=== PATIENT | female | born 1935 | race Caucasian/White ===

== ENCOUNTER 2019-10-31 06:43 | Observation (INO) | payer MEDICARE ==
[~2019-10-31] VITALS: Ht 149.9 cm; Wt 53.1 kg
[~2019-10-31 06:43] MED LIST: AMITIZA24 MCG PO; Aspirin PO; CARDIZEM CD120 MG PO; FUROSEMIDE40 MG PO; LEVOTHYROXINE50 MCG PO; NAPROXEN500 MG; POTASSIUM CHLO10 ME1 PO; XANAX1 MG PO; ZOFRAN ODT4 MG PO
[2019-10-31] MEDS ORDERED: PANTOPRAZOLE 40 MG 10ML VIAL IV STA (06:45)
[2019-10-31] MEDS ORDERED: ASPIRIN 81 MG CHEW TAB PO ONE (06:45)
--- NOTE | 2019-10-31 07:01 | NUR ---
Report to HUSEYIN Collier
[2019-10-31 07:04] LABS: BASOPHILS # (AUTO) 0.1 (0.0-0.1); BASOPHILS % 0.8 % (0.0-1.0); EOSINOPHILS # (AUTO) 0.1 (0.0-0.4); EOSINOPHILS % 1.5 % (0.0-6.0); HEMATOCRIT 34.7 % (34.2-44.1); HEMOGLOBIN 10.7 g/dL (12.0-16.0); LYMPHOCYTES # (AUTO) 1.9 (1.0-3.2); LYMPHOCYTES % 21.8 % (18.0-39.1); MEAN CORPUSCULAR HEMOGLOBIN 28.5 pg (28-32); MEAN CORPUSCULAR HGB CONC 30.8 g/dL (31-35); MEAN CORPUSCULAR VOLUME 92.5 fL (81-99); MONOCYTES # (AUTO) 0.9 (0.2-0.8); MONOCYTES % 10.3 % (4.4-11.3); NEUTROPHILS # (AUTO) 5.6 (2.1-6.9); PLATELET COUNT 368 x10e3/uL (140-360); RED BLOOD COUNT 3.75 x10e6/uL (3.6-5.1); RED CELL DISTRIBUTION WIDTH 13.6 % (11.7-14.4)
[2019-10-31 07:16] LABS: INR 0.87; PROTHROMBIN TIME 12.2 seconds (11.9-14.5)
[2019-10-31 07:17] LABS: PARTIAL THROMBOPLASTIN TIME 29.1 seconds (23.8-35.5)
[2019-10-31 07:24] LABS: ALBUMIN 3.2 g/dL (3.5-5.0); ALBUMIN/GLOBULIN RATIO 1.1 (0.8-2.0); ANION GAP 13.4 mmol/L (8-16); CALCIUM 8.8 mg/dL (8.4-10.2); POTASSIUM 4.4 mmol/L (3.5-5.1)
--- NOTE | 2019-10-31 07:25 | Diagnostic Imaging Report ---
EXAMINATION: CHEST SINGLE (PORTABLE) INDICATION: ^CP ^[id number] ^0700 COMPARISON: None available FINDINGS: AP view TUBES and LINES: None. LUNGS: Lungs are well inflated. Mild central vascular congestion. No definite focal consolidation. PLEURA: No pleural effusion or pneumothorax. HEART AND MEDIASTINUM: The cardiomediastinal silhouette is unremarkable. BONES AND SOFT TISSUES: No acute osseous lesion. Soft tissues are unremarkable. UPPER ABDOMEN: No free air under the diaphragm. IMPRESSION: Mild central vascular congestion. No definite focal consolidation. Signed by: Dr. Saeed Holley MD on 10/31/2019 7:21 AM
[2019-10-31 07:30] LABS: CREATINE KINASE MB 2.2 ng/mL (0-5.0)
[2019-10-31] MEDS ORDERED: ONDANSETRON HCL INJ 2MG/ML 2ML 2 MG/ML VIAL IV PRN (07:30)
[2019-10-31] MEDS ORDERED: NITROGLYCERIN 0.4 MG SUBL SL PRN (07:30)
[2019-10-31] MEDS ORDERED: ASPIRIN 325 MG TAB EC PO ONE (07:30)
--- NOTE | 2019-10-31 07:44 | Emergency Department Note ---
History of Present Illnes History of Present Illness Chief Complaint: Chest Pain History of Present Illness This is a 84 year old female 84 Y/O FEMALE PT PRESENTS TO THE ER C/O GENERALIZED CP THAT WOKE HER UP AT 0400 WITH PALPITATIONS/HEART RACING, CP RADIATING TO CENTER OF BACK AND NAUSEA. NO ASSOCIATED SOB Historian: Patient Arrival Mode: Car Personal Computer Network Analyst Required: No Onset (how long ago): hour(s) Location: CHEST Quality: PRESSURE Radiation: Reports back Severity: severe (12/28 AT ONSET 0400) Timing of current episode: intermittent Progression: waxing and waning (CURRENTLY NOW 03/30) Chronicity: recurrent Context: Denies recent illness Relieving factors: none Exacerbating factors: none Associated symptoms: Reports chest pain, Reports other (PALPITATIONS); Denies shortness of breath Treatments prior to arrival: none Past Medical/Family History Physician Review I have reviewed the patient's past medical and family history. Any updates have been documented here. Past Medical History Recent Fever: No Clinical Suspicion of Infectio: No New/Unexplained Change in Ment: No Past Medical History: Hypertension, A-Fib, Hypothyroidism, Anxiety, GERD Other Medical History: INSOMNIA Other Surgery: Gastrectomy Back surgery x 4 x 2 Social History Smoking Cessation: Never Smoker Counseling Performed: No Alcohol Use: None Any Illegal Drug Use: No TB Exposure/Symptoms: No Physically hurt or threatened: No Family History Family history of heart diseas: Yes Other Last Tetanus: Unknown Any Pre-Existing Lines (PICC,: No Review of Systems Review of Systems Constitutional: Reports no symptoms EENTM: Reports no symptoms Cardiovascular: Reports as per HPI Respiratory: Reports no symptoms Gastrointestinal: Reports no symptoms Genitourinary: Reports no symptoms Musculoskeletal: Reports no symptoms Integumentary: Reports no symptoms Neurological: Reports no symptoms Psychological: Reports no symptoms Endocrine: Reports no symptoms Hematological/Lymphatic: Reports no symptoms Physical Exam Related Data Allergies: Coded Allergies: codeine (Unverified Adverse Reaction, Mild, throw up, 08/23/16) Triage Vital Signs Vital Signs Date Time Temp Pulse Resp B/P (MAP) Pulse Ox O2 Delivery O2 Flow Rate FiO2 10/31/19 06:43 98.9 84 17 133/78 100 Room Air Vital signs reviewed: Yes Physical Exam CONSTITUTIONAL Constitutional: Present well-developed, Present well-nourished HENT HENT: Present normocephalic, Present atraumatic, Present oropharynx clear/moist, Present nose normal HENT L/R: Present left ext ear normal, Present right ext ear normal EYES Eyes: Reports PERRL, Reports conjunctivae normal NECK Neck: Present ROM normal PULMONARY Pulmonary: Present effort normal, Present breath sounds normal CARDIOVASCULAR Cardiovascular: Present regular rhythm, Present heart sounds normal, Present capillary refill normal, Present normal rate GASTROINTESTINAL Abdominal: Present soft, Present nontender, Present bowel sounds normal GENITOURINARY Genitourinary: Present exam deferred SKIN Skin: Present warm, Present dry MUSCULOSKELETAL Musculoskeletal: Present ROM normal NEUROLOGICAL Neurological: Present alert, Present oriented x 3, Present no gross motor or sensory deficits PSYCHOLOGICAL Psychological: Present mood/affect normal, Present judgement normal Results Laboratory Result Diagram: 10/31/19 0600 10/31/19 0600 Laboratory Laboratory Tests Test 10/31/19 06:00 White Blood Count 8.63 x10e3/uL (4.8-10.8) Red Blood Count 3.75 x10e6/uL (3.6-5.1) Hemoglobin 10.7 g/dL (12.0-16.0) Hematocrit 34.7 % (34.2-44.1) Mean Corpuscular Volume 92.5 fL (81-99) Mean Corpuscular Hemoglobin 28.5 pg (28-32) Mean Corpuscular Hemoglobin Concent 30.8 g/dL (31-35) Red Cell Distribution Width 13.6 % (11.7-14.4) Platelet Count 368 x10e3/uL (140-360) Neutrophils (%) (Auto) 65.0 % (38.7-80.0) Lymphocytes (%) (Auto) 21.8 % (18.0-39.1) Monocytes (%) (Auto) 10.3 % (4.4-11.3) Eosinophils (%) (Auto) 1.5 % (0.0-6.0) Basophils (%) (Auto) 0.8 % (0.0-1.0) Neutrophils # (Auto) 5.6 (2.1-6.9) Lymphocytes # (Auto) 1.9 (1.0-3.2) Monocytes # (Auto) 0.9 (0.2-0.8) Eosinophils # (Auto) 0.1 (0.0-0.4) Basophils # (Auto) 0.1 (0.0-0.1) Absolute Immature Granulocyte (auto 0.05 x10e3/uL (0-0.1) Prothrombin Time 12.2 seconds (11.9-14.5) Prothromb Time International Ratio 0.87 Activated Partial Thromboplast Time 29.1 seconds (23.8-35.5) Sodium Level 138 mmol/L (136-145) Potassium Level 4.4 mmol/L (3.5-5.1) Chloride Level 107 mmol/L (98-107) Carbon Dioxide Level 22 mmol/L (22-29) Anion Gap 13.4 mmol/L (8-16) Blood Urea Nitrogen 22 mg/dL (7-26) Creatinine 1.00 mg/dL (0.57-1.11) Estimat Glomerular Filtration Rate 53 ML/MIN (60-) BUN/Creatinine Ratio 22 (6-25) Glucose Level 109 mg/dL (74-118) Calcium Level 8.8 mg/dL (8.4-10.2) Total Bilirubin 0.2 mg/dL (0.2-1.2) Aspartate Amino Transf (AST/SGOT) 19 IU/L (5-34) Alanine Aminotransferase (ALT/SGPT) 11 IU/L (0-55) Alkaline Phosphatase 113 IU/L (40-150) Creatine Kinase 53 IU/L (29-168) Creatine Kinase MB 2.20 ng/mL (0-5.0) Troponin I 0.006 ng/mL (0-0.300) Total Protein 6.2 g/dL (6.5-8.1) Albumin 3.2 g/dL (3.5-5.0) Globulin 3.0 g/dL (2.3-3.5) Albumin/Globulin Ratio 1.1 (0.8-2.0) Lab results reviewed: Yes Imaging Imaging results reviewed: Yes Impressions EXAMINATION: CHEST SINGLE (PORTABLE) INDICATION: ^CP ^[id number] ^0700 COMPARISON: None available FINDINGS: AP view TUBES and LINES: None. LUNGS: Lungs are well inflated. Mild central vascular congestion. No definite focal consolidation. PLEURA: No pleural effusion or pneumothorax. HEART AND MEDIASTINUM: The cardiomediastinal silhouette is unremarkable. BONES AND SOFT TISSUES: No acute osseous lesion. Soft tissues are unremarkable. UPPER ABDOMEN: No free air under the diaphragm. IMPRESSION: Mild central vascular congestion. No definite focal consolidation. Signed by: Dr. Saeed Holley MD on 10/31/2019 7:21 AM Procedures 12 Lead ECG Interpretation ECG Interpretation : ECG: ECG 1 Personal Computer Network Analyst: Interpreted by ED physician Date: Oct 31, 2019 Time: 06:44 Rhythm: sinus rhythm Rate: normal (92) QRS axis: normal ST segments normal: Yes T waves normal: Yes Clinical Impression: normal ECG Assessment & Plan Medical Decision Making MDM 84 Y/O WITH H/O PAROXYSMAL AFIB ON DILTIAZEM, CP WITH PALP'S WOKE HER AT 0400 - CHECK CBC, CHEM'S, ECG, CARDIACS, CXR - R/O STEMI/NSTEMI, AFIB, ELECTROLYTE ABNL, ANEMIA. ADMIT R/O ACS Reassessment Reassessment SPOKE WITH DR Reba BURNS FOR ADMISSION (PCP VICKY LEE) Assessment & Plan Final Impression: (1) Chest pain Depart Disposition: ADMITTED Last Vital Signs Date Time Temp Pulse Resp B/P (MAP) Pulse Ox O2 Delivery O2 Flow Rate FiO2 10/31/19 07:02 91 18 116/73 100 Room Air 10/31/19 06:43 98.9 Home Meds Active Scripts Potassium Chloride (POTASSIUM CHLORIDE) 10 Meq Tab.er.prt, 20 MEQ PO DAILY for 10 Days, TAB Prov:ARABELLA HIRSCH NP 11/23/15 [Aspirin] 81 MG TABEC No Conflict Check, 81 MG PO DAILY for 30 Days Prov:ARABELLA HIRSCH NP 11/23/15 Diltiazem Hcl* (CARDIZEM CD*) 120 Mg Cap.er.24h, 120 MG PO DAILY for 30 Days Prov:ARABELLA HIRSCH NP 11/23/15 Reported Medications Ondansetron (ZOFRAN ODT) 4 Mg Tab.rapdis, 4 MG PO BID PRN for NAUSEA, TAB 08/23/16 Levothyroxine Sodium (LEVOTHYROXINE SODIUM) 50 Mcg Tablet, 50 MCG PO DAILY, #30 TAB 08/23/16 Lubiprostone (AMITIZA) 24 Mcg Capsule, 24 MCG PO DAILY, CAP 11/22/15 Alprazolam* (XANAX*) 1 Mg Tablet, 0.5 MG PO HS PRN for SLEEP 1/23/16 Medications in the ED Pantoprazole Sodium 40 mg ONCE STAT IV ; Start 10/31/19 at 06:45; Stop 10/31/19 at 06:47; Status DC Aspirin 81 mg PRN ONCE PO ; Start 10/31/19 at 06:45; Stop 10/31/19 at 06:47; Status DC Aspirin 325 mg NOW ONCE PO ; Start 10/31/19 at 07:30; Stop 10/31/19 at 07:31; Status UNV Aspirin 81 mg QAM PO ; Start 10/31/19 at 09:00; Stop 11/30/19 at 08:59; Status UNV Nitroglycerin 0.4 mg Q5M PRN SL CHEST PAIN; Start 10/31/19 at 07:30; Status UNV Famotidine 20 mg Q12H IV ; Start 10/31/19 at 09:00; Stop 11/30/19 at 08:59; Status UNV Ondansetron HCl 4 mg Q4H PRN IV NAUSEA AND VOMITING; Start 10/31/19 at 07:30; Stop 11/30/19 at 07:29; Status UNV JOSH HARDEN MD Oct 31, 2019 07:44
--- OUTSIDE RECORDS SUMMARY | 2019-10-31 07:44 | XMS REPORT | Continuity of Care Document ---
Author Author [facility] Organization [facility] Address [address] [place] [address] Dr. Martinez. [address] [place] [phone] Phone Unavailable Care Team Providers Care Managing Director Atlas Name Role Phone Ty HARDEN Attphys Unavailable Problems This patient has no known problems. Allergies, Adverse Reactions, Alerts This patient has no known allergies or adverse reactions. Medications This patient has no known medications. Procedures This patient has no known procedures. Results Test Description Test Time Test Comments Results Result Comments Source CHEST SINGLE (PORTABLE) 2019-10-31 07:20:00 [place] [address] Patient Name: MATT FLORES MR #: [id number] : 1935 Age/Sex: 84/F Req #: [id number] Adm Physician: Ordered by: JOSH HARDEN MD Report #: [id number] Location: ER Room/Bed: Procedure: [id number] DX/CHEST SINGLE (PORTABLE) Exam Date: 10/31/19 Exam Time: 699 REPORT STATUS: Signed EXAMINATION: CHEST SINGLE (PORTABLE) INDICATION: CP [id number] COMPARISON: None available FINDINGS: AP view TUBES and LINES: None. LUNGS: Lungs are well inflated. Mild central vascular congestion. No definite focal consolidation. PLEURA: No pleural effusion or pneumothorax. HEART AND MEDIASTINUM: The cardiomediastinal silhouette is unremarkable. BONES AND SOFT TISSUES: No acute osseous lesion. Soft tissues are unremarkable. UPPER ABDOMEN: No free air under the diaphragm. IMPRESSION: Mild central vascular congestion. No definite focal consolidation. Signed by: Dr. Saeed Flor MD on 10/31/2019 7:21 AM Dictated By: SAEED FLOR MD 0 Transcribed By: FADI on 10/31/19720 COPY TO: JOSH HARDEN MD
[2019-10-31] MEDS: ASPIRIN 81 MG ENTERIC COATED PO SCH (08:24)
--- NOTE | 2019-10-31 08:42 | NUR ---
DR. BURNS AT BEDSIDE EVALUATING PATIENT
[2019-10-31] MEDS ORDERED: ONDANSETRON HCL 4 MG ORAL DISINTEGRATING TAB PO PRN (08:45)
[2019-10-31] MEDS: FAMOTIDINE 20 MG/2 ML VIAL IV SCH ×2 (08:46→20:50)
[2019-10-31] MEDS: DILTIAZEM HCL ER 120 MG CAP PO SCH (09:14)
[2019-10-31] MEDS: POTASSIUM CHLORIDE 10MEQ EA PO SCH (09:15)
[2019-10-31] MEDS: LEVOTHYROXINE SODIUM 50 MCG TAB PO SCH (09:15)
[2019-10-31] MEDS ORDERED: SODIUM CHLORIDE 0.9% 1000ML 1,000 ML IV STA (09:25)
[2019-10-31 09:28] LABS: CLARITY,URINE CLEAR (CLEAR); COLOR,URINE YELLOW (YELLOW); LEUKOCYTE ESTERASE ,URINE SMALL (NEGATIVE); NITRITE,URINE POSITIVE (NEGATIVE); PROTEIN,URINE DIPSTICK NEGATIVE (NEGATIVE)
[2019-10-31 09:29] LABS: BILIRUBIN,URINE NEGATIVE (NEGATIVE); KETONES,URINE NEGATIVE (NEGATIVE); URINE UROBILINOGEN 0.2 mg/dL (0.2 - 1)
[2019-10-31] MEDS: LUBIPROSTONE 24 MCG CAP PO SCH (09:31)
--- NOTE | 2019-10-31 09:37 | NUR ---
DR. GEE AT BEDSIDE EVALUATING PATIENT
[2019-10-31 09:54] LABS: BACTERIA,URINE MANY /HPF; EPITHELIAL CELLS,URINE FEW /LPF; RBC,URINE 0-5 /HPF (0-5); TRANSITIONAL EPI CELLS,URINE FEW; WBC,URINE (MAN) 21-50 /HPF (0-5)
--- NOTE | 2019-10-31 10:28 | Consultation ---
DATE OF CONSULTATION: 10/31/2019 Cardiology Consultation Thank you for asking me to see this nice lady in consultation. Ms. Ortega is a pleasant 84-year-old woman who presents to the emergency room with a report that she was awakened at 4 o'clock this morning with chest pain and palpitations. HISTORY OF PRESENT ILLNESS: The patient reports that she thinks the chest discomfort woke her first, in the right side of her chest radiating to her back seemed quite severe and a little while later the palpitations began. She reports these things were eventually spontaneously resolved without any special treatment. PAST MEDICAL HISTORY: Significant for previous hospitalizations at [facility] in 2016. She was hospitalized for chest discomfort with a report that she has had a brief episode of atrial fibrillation. I have not seen a documentation on the chart. Also hospitalized in 2017 for gastrointestinal problems. Past medical history significant for chronic constipation, anxiety, depression, partial gastrectomy secondary to peptic ulcer disease, also cholecystectomy, and appendectomy. CURRENT MEDICATIONS: At home include; diltiazem ER 120 mg daily, levothyroxine 50 mcg daily, potassium 20 mEq daily, and famotidine 20 mg b.i.d. She tells me she takes a medication for her bladder as well, and denies any diuretics. PERSONAL AND SOCIAL HISTORY: She does not smoke or drink. She lives at home with her friend. PHYSICAL EXAMINATION: GENERAL: At this time shows a pleasant, alert lady, thin, and awake. VITAL SIGNS: Blood pressure 132/70, heart rate 90 and regular. HEAD, EYES, EARS, NOSE, AND THROAT: Shows only poor dentition. NECK: No jugular venous distention. THORAX: Heart sounds S1 and S2 are equal. No murmurs. LUNGS: Clear. ABDOMEN: Protuberant. Healed surgical incisions. Normal bowel sounds. Nontender. EXTREMITIES: No cyanosis, clubbing, or edema. LABORATORY DATA: EKG on discharge shows sinus rhythm without ST or T-wave changes. BNP is 275, BUN 22, creatinine 1.0, glucose 109, hemoglobin 10.7, white count normal. Initial troponins normal. Additionally, echocardiogram in 2016, showed normal LV function, mild aortic insufficiency and trace mitral regurgitation. ASSESSMENT: 1. Chest discomfort, etiology not clear. Could have underlying coronary disease. 2. Palpitations, felt to have a previous episode of atrial fib in 2016, but without recurrence per her report. 3. Anemia, chronic with iron supplements by her report and for abnormal BNP suggesting a possibility of congestive failure. PLAN: We will continue her home medications and check cardiac enzymes, an echocardiogram, and aspirin. Further management based on clinical course. MD TYLER Tirado/TOM /[id number] cc: Geoffrey Grant MD
--- NOTE | 2019-10-31 10:39 | History and Physical ---
PRIMARY CARE PHYSICIAN: CHIEF COMPLAINT: Chest pain radiating to the back. HISTORY OF PRESENT ILLNESS: The patient is an 84-year-old female complained of increasing generalized chest pain, woke up in the middle of the hem inspector at approximately 4:00 a.m. The patient stated the pain is more so on the right side radiating to her back. Her heart was racing increasing heart rate. The patient came to the emergency room with chest pressure radiating to the back, but otherwise no nausea or vomiting. Her cardiac enzymes were negative. Chest x-ray unremarkable. The patient did have history of paroxysmal atrial fibrillation and try and hypothyroidism. She is little anxious, but otherwise she is stable. PAST MEDICAL HISTORY: Hypertension, hypothyroidism, paroxysmal atrial fibrillation, anxiety disorder, reflux history, and insomnia. PAST SURGICAL HISTORY: Back surgery x4, , cholecystectomy, appendectomy. SOCIAL HISTORY: The patient does not smoke or use alcohol. No recreational drug. ALLERGIES: CODEINE. HOME MEDICATIONS: The patient is on Dyazide, Amitiza, levothyroxine, Cardizem CD, Xanax p.r.n., and Ambien p.r.n. PHYSICAL EXAMINATION: VITAL SIGNS: Temperature is 98, blood pressure 133/78, pulse rate is 84, and respirations 18. GENERAL: The patient is in no acute distress. She is awake. HEENT: Normocephalic and atraumatic. She is anicteric. NECK: Supple grossly. PULMONARY: Clear. CARDIOVASCULAR: Regular rate and rhythm. ABDOMEN: Soft, nontender, and non-distention. EXTREMITIES: No cyanosis or edema. NEUROLOGIC: No gross focal deficit. LABORATORY DATA: WBC is 8.6, hemoglobin 10.7, hematocrit 34.7, and platelet is 368. Chemistry; sodium 138, potassium 4.4, chloride 107, bicarb 22, BUN 22, creatinine 1.0, glucose 109. BNP is 275. Serology, PCR coronavirus is still pending. Chest x-ray showed mild vascular congestion. IMPRESSION: 1. Vascular congestion, possible early congestive heart failure. 2. Paroxysmal atrial fibrillation. 3. Atypical chest pain. 4. Hypertension. 5. Hypothyroidism. PLAN: Cardiology consultation by Dr. Chester Lowe. 2D echocardiogram. Home medication resumed. CT chest with contrast. Cardiac enzyme x3. Lipid panel in the morning. We will monitor the patient closely and adjust her medication. We will follow up on the patient lab results as well as echo and a CT scan. MD CHINYERE Pyle/TOM /[id number]
--- NOTE | 2019-10-31 11:01 | NUR ---
rec'd report in walking rounds [facility] carley suarez
[2019-10-31] MEDS: ALPRAZOLAM 0.5 MG TAB PO PRN ×2 (11:09→20:50)
[2019-10-31] MEDS ORDERED: IOPAMIDOL 370 MG/ML 200 ML INFUS..BTL INJ ONE (11:20)
[2019-10-31] MEDS ORDERED: SODIUM CHLORIDE 0.9% 50ML 50 ML ONE (11:20)
--- NOTE | 2019-10-31 11:54 | Diagnostic Imaging Report ---
EXAM: CT Chest WITH intravenous contrast 10/31/2019 11:26 AM INDICATION: Chest pain COMPARISON: Chest radiograph of earlier the same day TECHNIQUE: Chest was scanned utilizing a multidetector helical scanner from the lung apex through the level of the adrenal glands after administration of IV contrast. Coronal and sagittal reformations were obtained. Routine protocol was performed. IV CONTRAST: 100mL Isovue 370 RADIATION DOSE: Total DLP: 483 mGy*cm. Dose modulation, iterative reconstruction, and/or weight based adjustment of the mA/kV was utilized to reduce the radiation dose to as low as reasonably achievable. COMPLICATIONS: None FINDINGS: LINES/ TUBES: None. LUNGS AND AIRWAYS: The central airways are patent. No focal consolidation. Mild bibasilar dependent subsegmental atelectasis. Mild smooth interlobular septal thickening compatible with component of mild interstitial pulmonary edema. PLEURA: The pleural spaces are clear. HEART AND MEDIASTINUM: The thyroid gland is normal. No mediastinal, hilar or axillary lymphadenopathy. The heart is not enlarged. No pericardial effusion. Scattered atherosclerotic calcifications involve the thoracic aorta, coronary arteries, and proximal great vessels. No aortic aneurysm or dissection. Dense mitral annular calcifications.. No pulmonary embolism. No right heart strain. UPPER ABDOMEN: No acute findings in the upper abdomen. BONES: No acute osseous injury. No spacious lytic or blastic lesions. SOFT TISSUES: Unremarkable. IMPRESSION: Mild pulmonary and her social edema. No focal pneumonia. No pulmonary embolism. Signed by: Eva Reyes MD on 10/31/2019 11:51 AM
[2019-10-31 11:59] VITALS: BP 112/79
--- NOTE | 2019-10-31 12:30 | NUR ---
patient received from ER via stretcher. complaining of epigastric/sternal pain radiating to ellen arms. vitals are stable. pain very intermittent.
[2019-10-31] MEDS ORDERED: ACETAMINOPHEN 325 MG TAB PO PRN ×2 (12:45→13:15)
[2019-10-31] MEDS ORDERED: SODIUM CHLORIDE 0.9% 1000ML 1,000 ML ONE (13:14)
[2019-10-31 13:40] LABS: CREATINE KINASE MB 1.6 ng/mL (0-5.0)
[2019-10-31 14:08] VITALS: BP 112/79
[2019-10-31 16:00] VITALS: BP 143/70
[2019-10-31 19:17] LABS: CREATINE KINASE MB 1.4 ng/mL (0-5.0)
[2019-10-31 20:00] VITALS: BP 142/81
[2019-10-31 20:50] VITALS: BP 145/77
--- NOTE | 2019-10-31 20:50 | NUR ---
PATIENT RESTING IN BED IN STABLE CONDITION, NO SIGNS OF DISTRESS NOTED. IV FLUIDS ARE RUNNING AT ORDERED RATE AND PATIENT VOICES NO PAIN AT THIS TIME. BED IS IN LOWEST POSITION, BOTH SIDE RAILS ARE UP, CALL LIGHT IS WITHIN EASY REACH, WILL CONTINUE TO MONITOR.
[2019-11-01] VITALS: BP 122/67
[2019-11-01 04:00] VITALS: BP 153/71
[2019-11-01 05:14] LABS: BASOPHILS # (AUTO) 0.1 (0.0-0.1); EOSINOPHILS # (AUTO) 0.1 (0.0-0.4); EOSINOPHILS % 2.1 % (0.0-6.0); HEMATOCRIT 30.2 % (34.2-44.1); HEMOGLOBIN 9.6 g/dL (12.0-16.0); LYMPHOCYTES # (AUTO) 1.8 (1.0-3.2); LYMPHOCYTES % 27.9 % (18.0-39.1); MEAN CORPUSCULAR HEMOGLOBIN 30.4 pg (28-32); MEAN CORPUSCULAR HGB CONC 31.8 g/dL (31-35); MEAN CORPUSCULAR VOLUME 95.6 fL (81-99); MONOCYTES # (AUTO) 0.8 (0.2-0.8); MONOCYTES % 12.3 % (4.4-11.3); NEUTROPHILS # (AUTO) 3.5 (2.1-6.9); NEUTROPHILS % 56.2 % (38.7-80.0); PLATELET COUNT 295 x10e3/uL (140-360); RED BLOOD COUNT 3.16 x10e6/uL (3.6-5.1); RED CELL DISTRIBUTION WIDTH 13.9 % (11.7-14.4)
[2019-11-01 06:03] LABS: ALANINE AMINOTRANSFERASE 9 IU/L (0-55); ALBUMIN 2.6 g/dL (3.5-5.0); ALKALINE PHOSPHATASE 88 IU/L (40-150); BLOOD UREA NITROGEN 13 mg/dL (7-26); BUN/CREATININE RATIO 16 (6-25); CALCIUM 8.3 mg/dL (8.4-10.2); CARBON DIOXIDE 21 mmol/L (22-29); CHLORIDE 111 mmol/L (98-107); CHOL/HDL RATIO 3.4 (3.0-3.6); CHOLESTEROL 145 MD/DL (0-199); EST GLOMERULAR FILTRATION RATE > 60 ML/MIN (60-); GLUCOSE 85 mg/dL (74-118); HDL CHOLESTEROL 43 MG/DL (40-60); LDL CHOLESTEROL 72 MG/DL (60-130); SODIUM 139 mmol/L (136-145); TRIGLYCERIDES 151 MG/DL (0-149)
[2019-11-01] MEDS: LEVOTHYROXINE SODIUM 50 MCG TAB PO SCH (06:26)
[2019-11-01 08:00] VITALS: BP 130/78
[2019-11-01] MEDS: FAMOTIDINE 20 MG/2 ML VIAL IV SCH (08:36)
[2019-11-01] MEDS: LUBIPROSTONE 24 MCG CAP PO SCH (08:36)
[2019-11-01] MEDS: ASPIRIN 81 MG ENTERIC COATED PO SCH (08:36)
[2019-11-01] MEDS: DILTIAZEM HCL ER 120 MG CAP PO SCH (08:36)
[2019-11-01 08:38] VITALS: BP 130/70
[2019-11-01] MEDS ORDERED: DYAZIDE 37.5-21 EACH PO (08:39)
[2019-11-01] MEDS: POTASSIUM CHLORIDE 10MEQ EA PO SCH (09:36)
== END 2019-11-01 10:21 | disposition home or self-care (01) ==
LOC: ER 07:16 → ERHOLD 07:24 → MED/SURG 11:50
PROVIDERS: ADMIT Internal Medicine; ATTEND Internal Medicine
DX: R07.89 Other chest pain (principal); I48.0 Paroxysmal atrial fibrillation; Z79.01 Long term (current) use of anticoagulants; E03.9 Hypothyroidism, unspecified; I25.10 Atherosclerotic heart disease of native coronary artery without angina pectoris; D64.9 Anemia, unspecified
CPT/HCPCS: 36415 ×2; 71045; 71260; 80053 ×2; 80061; 81001; 82550; 82553; 83880; 84443; 84484; 85025 ×2; 85610; 85730; 87086; 87186; 93005; 93306; 99284; C9113; G0378 ×2; J7030; Q9967; U0002

== ENCOUNTER 2019-12-10 07:25 | Inpatient (IN) | payer MEDICARE, OTHER ==
[2019-12-10] VITALS (8 sets, daily range): BP systolic 131–149; BP diastolic 47–56
[~2019-12-10] VITALS: Ht 149.9 cm; Wt 53.1 kg
[~2019-12-10 07:25] MED LIST changes: +DYAZIDE 37.5-21 EACH PO
[2019-12-10] MEDS ORDERED: DILTIAZEM HCL 5 MG/ML 5 ML VIAL IV STA (07:39)
[2019-12-10] MEDS ORDERED: ASPIRIN 81 MG CHEW TAB PO STA (07:39)
[2019-12-10] MEDS ORDERED: SODIUM CHLORIDE 0.9% 1000ML 1,000 ML IV STA (07:39)
[2019-12-10] MEDS ORDERED: DILTIAZEM HCL VIAL 5 ML ONE (07:44)
[2019-12-10] MEDS ORDERED: DIGOXIN INJ 0.25 MG/ML 2 ML AMP IV ONE ×2 (07:45→09:00)
[2019-12-10] MEDS ORDERED: DILTIAZEM HCL 60 MG TAB PO SCH (07:45)
[2019-12-10 07:50] LABS: BASOPHILS # (AUTO) 0.1 (0.0-0.1); EOSINOPHILS # (AUTO) 0.2 (0.0-0.4); HEMATOCRIT 32.4 % (34.2-44.1); HEMOGLOBIN 10.2 g/dL (12.0-16.0); LYMPHOCYTES # (AUTO) 2.1 (1.0-3.2); LYMPHOCYTES % 26.5 % (18.0-39.1); MEAN CORPUSCULAR HEMOGLOBIN 29.1 pg (28-32); MEAN CORPUSCULAR HGB CONC 31.5 g/dL (31-35); MEAN CORPUSCULAR VOLUME 92.3 fL (81-99); MONOCYTES # (AUTO) 0.8 (0.2-0.8); MONOCYTES % 10.4 % (4.4-11.3); NEUTROPHILS # (AUTO) 4.7 (2.1-6.9); NEUTROPHILS % 59.5 % (38.7-80.0); PLATELET COUNT 404 x10e3/uL (140-360); RED BLOOD COUNT 3.51 x10e6/uL (3.6-5.1); RED CELL DISTRIBUTION WIDTH 13.2 % (11.7-14.4)
[2019-12-10 07:56] LABS: INR 0.87; PROTHROMBIN TIME 12.3 seconds (11.9-14.5)
[2019-12-10 07:57] LABS: PARTIAL THROMBOPLASTIN TIME 27.3 seconds (23.8-35.5)
[2019-12-10 08:06] LABS: ALBUMIN 3.8 g/dL (3.5-5.0); ALBUMIN/GLOBULIN RATIO 1.5 (0.8-2.0); CALCIUM 8.5 mg/dL (8.4-10.2); CREATININE, SERUM 0.93 mg/dL (0.57-1.11); MAGNESIUM 2.2 MG/DL (1.3-2.1)
[2019-12-10 08:12] LABS: CREATINE KINASE MB 1.9 ng/mL (0-5.0)
[2019-12-10] MEDS ORDERED: AMBIEN10 MG PO (08:22)
[2019-12-10] MEDS ORDERED: FERROUS SULFAT325 MG PO (08:22)
[2019-12-10] MEDS ORDERED: OXYBUTYNIN CHLOR5 MG PO (08:22)
[2019-12-10] MEDS ORDERED: PANTOPRAZOLE SO40 MG PO (08:22)
[2019-12-10] MEDS: ASPIRIN 81 MG ENTERIC COATED PO SCH (08:38)
[2019-12-10] MEDS: ENOXAPARIN SOD INJ 60 MG/0.6 ML SYR SC SCH ×2 (08:51→19:54)
[2019-12-10] MEDS: ONDANSETRON HCL INJ 2MG/ML 2ML 2 MG/ML VIAL IV PRN ×3 (08:51→19:54)
[2019-12-10] MEDS ORDERED: AMIODARONE HCL INJ 150MG/3ML ONE (09:25)
[2019-12-10] MEDS ORDERED: FUROSEMIDE INJ 10 MG/ML 2 ML VIAL IV ONE (09:30)
[2019-12-10] MEDS ORDERED: AMIODARONE HCL 150 MG/100 ML BAG IV ONE (09:30)
[2019-12-10] MEDS ORDERED: POTASSIUM CHLORIDE 10MEQ EA PO ONE (09:30)
[2019-12-10] MEDS: DILTIAZEM HCL 180 MG CAP ER PO SCH (09:39)
[2019-12-10] MEDS: AMIODARONE HCL 900 MG in DEXTROSE 5% 500ML 500 ML IV SCH ×2 (10:18→10:46)
[2019-12-10] MEDS: NITROGLYCERIN 0.4 MG SUBL SL PRN ×3 (15:01→16:15)
[2019-12-10] MEDS: MORPHINE SULFATE 2 MG/ML SYR 1ML IV PRN (15:33)
[2019-12-10] MEDS: FAMOTIDINE 20 MG/2 ML VIAL IV SCH (16:53)
[2019-12-11] VITALS (8 sets, daily range): BP systolic 130–167; BP diastolic 50–83
[2019-12-11] MEDS: ONDANSETRON HCL INJ 2MG/ML 2ML 2 MG/ML VIAL IV PRN ×3 (00:05→08:25)
[2019-12-11 05:05] LABS: BASOPHILS % 0.5 % (0.0-1.0); EOSINOPHILS % 0.1 % (0.0-6.0); HEMATOCRIT 28.7 % (34.2-44.1); HEMOGLOBIN 9.2 g/dL (12.0-16.0); LYMPHOCYTES # (AUTO) 1.4 (1.0-3.2); LYMPHOCYTES % 18.1 % (18.0-39.1); MEAN CORPUSCULAR HEMOGLOBIN 30.3 pg (28-32); MEAN CORPUSCULAR HGB CONC 32.1 g/dL (31-35); MEAN CORPUSCULAR VOLUME 94.4 fL (81-99); MONOCYTES # (AUTO) 0.5 (0.2-0.8); MONOCYTES % 7.1 % (4.4-11.3); NEUTROPHILS # (AUTO) 5.6 (2.1-6.9); NEUTROPHILS % 73.5 % (38.7-80.0); PLATELET COUNT 359 x10e3/uL (140-360); RED BLOOD COUNT 3.04 x10e6/uL (3.6-5.1)
[2019-12-11] MEDS: FAMOTIDINE 20 MG/2 ML VIAL IV SCH ×2 (05:15→17:12)
[2019-12-11 05:27] LABS: ALANINE AMINOTRANSFERASE 14 IU/L (0-55); ALBUMIN 3.4 g/dL (3.5-5.0); ALBUMIN/GLOBULIN RATIO 1.5 (0.8-2.0); ALKALINE PHOSPHATASE 112 IU/L (40-150); ANION GAP 14.1 mmol/L (8-16); BLOOD UREA NITROGEN 15 mg/dL (7-26); BUN/CREATININE RATIO 17 (6-25); CARBON DIOXIDE 22 mmol/L (22-29); CHLORIDE 106 mmol/L (98-107); CHOLESTEROL 147 MD/DL (0-199); CREATININE, SERUM 0.87 mg/dL (0.57-1.11); EST GLOMERULAR FILTRATION RATE > 60 ML/MIN (60-); GLUCOSE 92 mg/dL (74-118); HDL CHOLESTEROL 49 MG/DL (40-60); LDL CHOLESTEROL 66 MG/DL (60-130); POTASSIUM 4.1 mmol/L (3.5-5.1); SODIUM 138 mmol/L (136-145); TRIGLYCERIDES 158 MG/DL (0-149)
[2019-12-11 05:50] LABS: CREATINE KINASE MB 1.5 ng/mL (0-5.0)
[2019-12-11 06:09] LABS: MAGNESIUM 2.1 MG/DL (1.3-2.1); PHOSPHORUS 3.4 MG/DL (2.3-4.7)
[2019-12-11] MEDS: ENOXAPARIN SOD INJ 60 MG/0.6 ML SYR SC SCH (08:20)
[2019-12-11] MEDS: DILTIAZEM HCL 180 MG CAP ER PO SCH (08:36)
[2019-12-11] MEDS: ASPIRIN 81 MG ENTERIC COATED PO SCH (08:36)
[2019-12-11] MEDS ORDERED: POTASSIUM CHLORIDE 10MEQ EA PO SCH (09:00)
[2019-12-11] MEDS ORDERED: FUROSEMIDE INJ 10 MG/ML 2 ML VIAL IV SCH (09:00)
[2019-12-11] MEDS ORDERED: METOCLOPRAMIDE HCL 10 MG/2ML VIAL IV PRN (09:45)
[2019-12-11] MEDS: MORPHINE SULFATE 2 MG/ML SYR 1ML IV PRN (12:01)
[2019-12-12] VITALS (13 sets, daily range): BP systolic 99–154; BP diastolic 43–72
[2019-12-12] MEDS: FAMOTIDINE 20 MG/2 ML VIAL IV SCH ×2 (05:13→16:43)
[2019-12-12 05:20] LABS: ANION GAP 14.9 mmol/L (8-16); CALCIUM 8.1 mg/dL (8.4-10.2); CREATININE, SERUM 0.9 mg/dL (0.57-1.11); POTASSIUM 3.9 mmol/L (3.5-5.1)
[2019-12-12] MEDS: SODIUM CHLORIDE 0.9% 1000ML 1,000 ML IV SCH ×3 (06:59→23:01)
[2019-12-12] MEDS: DILTIAZEM HCL 180 MG CAP ER PO SCH (08:28)
[2019-12-12] MEDS: ASPIRIN 81 MG ENTERIC COATED PO SCH (08:28)
[2019-12-12] MEDS ORDERED: LORAZEPAM 0.5 MG TAB PO PRN (10:00)
[2019-12-12] MEDS ORDERED: LIDOCAINE HCL 2% LOCAL 20 ML VIAL ONE (11:51)
[2019-12-12] MEDS ORDERED: FENTANYL CITRATE/PF 100MCG/2 ML INJ ONE (11:51)
[2019-12-12] MEDS ORDERED: HEPARIN SOD/SOD CHLORIDE 2,000 ML ONE (11:51)
[2019-12-12] MEDS ORDERED: IOPAMIDOL 370 MG/ML 200 ML INFUS..BTL INJ ONE (11:51)
[2019-12-12] MEDS ORDERED: MIDAZOLAM HCL 2 MG/2 ML VIAL ONE (11:51)
[2019-12-12] MEDS ORDERED: SODIUM CHLORIDE 0.9% 1000ML 1,000 ML ONE (11:52)
[2019-12-12] MEDS ORDERED: MORPHINE SULFATE INJ 4 MG/ML INJ 1ML ONE (14:18)
[2019-12-12] MEDS: ONDANSETRON HCL INJ 2MG/ML 2ML 2 MG/ML VIAL IV PRN (18:06)
[2019-12-12] MEDS: MORPHINE SULFATE 2 MG/ML SYR 1ML IV PRN ×2 (18:06→21:10)
[2019-12-12] MEDS ORDERED: TRAMADOL HCL 50 MG TAB PO ONE (22:45)
[2019-12-12] MEDS ORDERED: ACETAMINOPHEN 325 MG TAB PO ONE (22:45)
[2019-12-13] VITALS (9 sets, daily range): BP systolic 118–146; BP diastolic 58–80
[2019-12-13] MEDS: FAMOTIDINE 20 MG/2 ML VIAL IV SCH ×2 (04:43→16:34)
[2019-12-13] MEDS: MORPHINE SULFATE 2 MG/ML SYR 1ML IV PRN (05:55)
[2019-12-13] MEDS: ONDANSETRON HCL INJ 2MG/ML 2ML 2 MG/ML VIAL IV PRN (05:55)
[2019-12-13] MEDS: SODIUM CHLORIDE 0.9% 1000ML 1,000 ML IV SCH (06:07)
[2019-12-13] MEDS ORDERED: ALPRAZOLAM 0.25 MG TAB PO PRN (06:30)
[2019-12-13] MEDS ORDERED: ALPRAZOLAM 0.25 MG TAB PO ONE (06:45)
[2019-12-13] MEDS ORDERED: METOPROLOL TARTRATE 50 MG TAB PO ONE (07:35)
[2019-12-13] MEDS: ASPIRIN 81 MG ENTERIC COATED PO SCH (09:00)
[2019-12-13] MEDS ORDERED: APIXABAN 5 MG TABLET PO SCH (11:00)
[2019-12-13] MEDS: APIXAB 2.5 MG TABLET PO SCH ×2 (11:30→16:34)
[2019-12-13] MEDS: METOPROLOL TARTRATE 50 MG TAB PO SCH (19:00)
[2019-12-14] VITALS (8 sets, daily range): BP systolic 123–159; BP diastolic 58–87
[2019-12-14 04:50] LABS: BASOPHILS # (AUTO) 0.1 (0.0-0.1); BASOPHILS % 0.5 % (0.0-1.0); EOSINOPHILS # (AUTO) 0.1 (0.0-0.4); EOSINOPHILS % 0.8 % (0.0-6.0); HEMATOCRIT 28.8 % (34.2-44.1); HEMOGLOBIN 9.1 g/dL (12.0-16.0); LYMPHOCYTES # (AUTO) 1.4 (1.0-3.2); LYMPHOCYTES % 13.1 % (18.0-39.1); MEAN CORPUSCULAR HEMOGLOBIN 28.6 pg (28-32); MEAN CORPUSCULAR HGB CONC 31.6 g/dL (31-35); MEAN CORPUSCULAR VOLUME 90.6 fL (81-99); MONOCYTES # (AUTO) 1.4 (0.2-0.8); MONOCYTES % 12.6 % (4.4-11.3); NEUTROPHILS # (AUTO) 7.9 (2.1-6.9); NEUTROPHILS % 72.4 % (38.7-80.0); PLATELET COUNT 387 x10e3/uL (140-360); RED BLOOD COUNT 3.18 x10e6/uL (3.6-5.1); RED CELL DISTRIBUTION WIDTH 13.1 % (11.7-14.4)
[2019-12-14] MEDS: FAMOTIDINE 20 MG/2 ML VIAL IV SCH (05:10)
[2019-12-14 05:11] LABS: ANION GAP 14.7 mmol/L (8-16); BLOOD UREA NITROGEN 14 mg/dL (7-26); BUN/CREATININE RATIO 18 (6-25); CARBON DIOXIDE 21 mmol/L (22-29); CHLORIDE 105 mmol/L (98-107); EST GLOMERULAR FILTRATION RATE > 60 ML/MIN (60-); GLUCOSE 73 mg/dL (74-118); POTASSIUM 3.7 mmol/L (3.5-5.1); SODIUM 137 mmol/L (136-145)
[2019-12-14] MEDS: METOPROLOL TARTRATE 50 MG TAB PO SCH ×2 (05:12→16:25)
[2019-12-14] MEDS: ASPIRIN 81 MG ENTERIC COATED PO SCH (08:32)
[2019-12-14] MEDS: APIXAB 2.5 MG TABLET PO SCH ×2 (08:32→16:31)
[2019-12-14] MEDS ORDERED: METOCLOPRAMIDE HCL 10 MG TAB PO PRN (12:30)
[2019-12-14] MEDS ORDERED: ONDANSETRON HCL 4 MG ORAL DISINTEGRATING TAB PO PRN (14:00)
[2019-12-14] MEDS ORDERED: FAMOTIDINE 20 MG TAB PO SCH (16:30)
== END 2019-12-14 22:13 | disposition left against medical advice (07) | DRG 286 ==
LOC: ER 07:55 → ERHOLD 08:24 → MED/SURG2 12:49
PROVIDERS: ADMIT Internal Medicine; ATTEND Internal Medicine
PROC: 4A023N7 Measurement of Cardiac Sampling and Pressure, Left Heart, Percutaneous Approach (ICD-10-PCS; principal; 2019-12-14)
PROC: 4A023N7 Measurement of Cardiac Sampling and Pressure, Left Heart, Percutaneous Approach (ICD-10-PCS; 2019-12-14)
PROC: B2111ZZ Fluoroscopy of Multiple Coronary Arteries using Low Osmolar Contrast (ICD-10-PCS; 2019-12-14)
DX: I48.0 Paroxysmal atrial fibrillation (principal); I50.23 Acute on chronic systolic (congestive) heart failure; I11.0 Hypertensive heart disease with heart failure; E03.9 Hypothyroidism, unspecified; F41.9 Anxiety disorder, unspecified; G47.00 Insomnia, unspecified; Z11.59 Encounter for screening for other viral diseases; D64.9 Anemia, unspecified
CPT/HCPCS: 36415; 71045; 71250; 74176; 80048; 80053; 80061; 82550; 82553; 82948; 83735; 83880; 84100; 84443; 84484; 85025; 85610; 85730; 93005; 93458; 99152; 99284; C1766; C1887; J1160; J1650; J1940; J2001; J2250; J2270; J2405; J2765; J3010; J7030; J7060; Q9967; U0002

== ENCOUNTER 2019-12-27 17:48 | Observation (INO) | payer MEDICARE, OTHER ==
[~2019-12-27] VITALS: Ht 152.4 cm; Wt 46.3 kg
[~2019-12-27 17:48] MED LIST changes: +AMBIEN10 MG PO; +FERROUS SULFAT325 MG PO; +OXYBUTYNIN CHLOR5 MG PO; +PANTOPRAZOLE SO40 MG PO
--- NOTE | 2019-12-27 18:39 | Emergency Department Note ---
History of Present Illnes History of Present Illness Chief Complaint: General Medicine Complaints History of Present Illness This is a 84 year old femalewith reports of fatigue, poor appetite and possible anemia. Patient was told to come to the ER by her PCP. No other complaints voiced. Patient has a history of a-fib. pt has felt this way for over 2 weeks . Historian: Patient Arrival Mode: Car Teacher Asst Required: No Onset (how long ago): week(s) (2) Location: all over Quality: fatigue, weak Radiation: Reports non-radiation Severity: moderate Onset quality: gradual Duration (how long): week(s) (2) Timing of current episode: constant Progression: worsening Chronicity: recurrent Context: Denies recent illness, Denies recent surgery, Denies recent travel Relieving factors: none Exacerbating factors: none Associated symptoms: Reports denies other symptoms Treatments prior to arrival: none Past Medical/Family History Physician Review I have reviewed the patient's past medical and family history. Any updates have been documented here. Past Medical History Recent Fever: No Clinical Suspicion of Infectio: No New/Unexplained Change in Ment: No Past Medical History: Hypertension, A-Fib, Hypothyroidism, Anxiety, GERD Other Medical History: INSOMNIA Past Surgical History: Back Surgery Other Surgery: partial gastrectomy Social History Smoking Cessation: Never Smoker Alcohol Use: None Any Illegal Drug Use: No Other Last Tetanus: Unknown Review of Systems Review of Systems Constitutional: Reports no symptoms EENTM: Reports no symptoms Cardiovascular: Reports no symptoms Respiratory: Reports no symptoms Gastrointestinal: Reports no symptoms Genitourinary: Reports no symptoms Musculoskeletal: Reports no symptoms Integumentary: Reports no symptoms Neurological: Reports as per HPI Psychological: Reports no symptoms Endocrine: Reports no symptoms Hematological/Lymphatic: Reports no symptoms Physical Exam Related Data Allergies: Coded Allergies: codeine (Unverified Adverse Reaction, Mild, throw up, 08/23/16) Triage Vital Signs Vital Signs Date Time Temp Pulse Resp B/P (MAP) Pulse Ox O2 Delivery O2 Flow Rate FiO2 12/27/19 18:20 97.4 50 17 118/64 100 Room Air Vital signs reviewed: Yes Physical Exam CONSTITUTIONAL Constitutional: Present well-developed, Present well-nourished HENT HENT: Present normocephalic, Present atraumatic, Present oropharynx clear/moist, Present nose normal HENT L/R: Present left ext ear normal, Present right ext ear normal EYES Eyes: Reports PERRL, Reports conjunctivae normal NECK Neck: Present ROM normal PULMONARY Pulmonary: Present effort normal, Present breath sounds normal CARDIOVASCULAR Cardiovascular: Present regular rhythm, Present heart sounds normal, Present capillary refill normal, Present bradycardia GASTROINTESTINAL Abdominal: Present soft, Present nontender, Present bowel sounds normal GENITOURINARY Genitourinary: Present exam deferred SKIN Skin: Present warm, Present dry MUSCULOSKELETAL Musculoskeletal: Present ROM normal NEUROLOGICAL Neurological: Present alert, Present oriented x 3, Present no gross motor or sensory deficits PSYCHOLOGICAL Psychological: Present mood/affect normal, Present judgement normal Results Laboratory Laboratory Laboratory Tests Test 12/27/19 18:45 12/27/19 18:33 Urine Color Yellow (YELLOW) Urine Clarity Hazy (CLEAR) Urine pH 5 (5 - 7) Urine Specific [place] 1.020 (1.010-1.025) Urine Protein Negative (NEGATIVE) Urine Glucose (UA) Negative (NEGATIVE) Urine Ketones Negative (NEGATIVE) Urine Blood Negative (NEGATIVE) Urine Nitrite Negative (NEGATIVE) Urine Bilirubin Negative (NEGATIVE) Urine Urobilinogen 0.2 mg/dL (0.2 - 1) Urine Leukocyte Esterase Moderate (NEGATIVE) Urine RBC None /HPF (0-5) Urine WBC 6-10 /HPF (0-5) Urine Epithelial Cells None /LPF (NONE) Urine Bacteria Many /HPF (NONE) White Blood Count 10.20 x10e3/uL (4.8-10.8) Red Blood Count 3.87 x10e6/uL (3.6-5.1) Hemoglobin 11.3 g/dL (12.0-16.0) Hematocrit 36.4 % (34.2-44.1) Mean Corpuscular Volume 94.1 fL (81-99) Mean Corpuscular Hemoglobin 29.2 pg (28-32) Mean Corpuscular Hemoglobin Concent 31.0 g/dL (31-35) Red Cell Distribution Width 14.2 % (11.7-14.4) Platelet Count 434 x10e3/uL (140-360) Neutrophils (%) (Auto) 65.5 % (38.7-80.0) Lymphocytes (%) (Auto) 23.8 % (18.0-39.1) Monocytes (%) (Auto) 8.4 % (4.4-11.3) Eosinophils (%) (Auto) 0.8 % (0.0-6.0) Basophils (%) (Auto) 0.8 % (0.0-1.0) Neutrophils # (Auto) 6.7 (2.1-6.9) Lymphocytes # (Auto) 2.4 (1.0-3.2) Monocytes # (Auto) 0.9 (0.2-0.8) Eosinophils # (Auto) 0.1 (0.0-0.4) Basophils # (Auto) 0.1 (0.0-0.1) Absolute Immature Granulocyte (auto 0.07 x10e3/uL (0-0.1) Sodium Level 136 mmol/L (136-145) Potassium Level 5.1 mmol/L (3.5-5.1) Chloride Level 103 mmol/L (98-107) Carbon Dioxide Level 20 mmol/L (22-29) Anion Gap 18.1 mmol/L (8-16) Blood Urea Nitrogen 20 mg/dL (7-26) Creatinine 1.27 mg/dL (0.57-1.11) Estimat Glomerular Filtration Rate 40 ML/MIN (60-) BUN/Creatinine Ratio 16 (6-25) Glucose Level 82 mg/dL (74-118) Calcium Level 9.0 mg/dL (8.4-10.2) Total Bilirubin 0.2 mg/dL (0.2-1.2) Aspartate Amino Transf (AST/SGOT) 22 IU/L (5-34) Alanine Aminotransferase (ALT/SGPT) 13 IU/L (0-55) Alkaline Phosphatase 98 IU/L (40-150) Creatine Kinase 32 IU/L (29-168) Creatine Kinase MB 1.20 ng/mL (0-5.0) Troponin I 0.004 ng/mL (0-0.300) Total Protein 7.0 g/dL (6.5-8.1) Albumin 3.6 g/dL (3.5-5.0) Globulin 3.4 g/dL (2.3-3.5) Albumin/Globulin Ratio 1.1 (0.8-2.0) Lab results reviewed: Yes Imaging Imaging results reviewed: Yes Impressions EXAMINATION: Head CT without contrast. HISTORY:Weakness and fatigue. COMPARISON:Report of CT brain from 04/11/2015, prior images are not available for comparison at the time of interpretation. TECHNIQUE: Multidetector axial images were obtained from the foramen magnum to the vertex without contrast. The images were reconstructed using brain and bone algorithms. Thin section brain images were reformatted into coronal and sagittal planes. Dose modulation, iterative reconstruction, and/or weight based adjustment of the mA/kV was utilized to reduce the radiation dose to as low as reasonably achievable. Intravenous contrast: None IMAGE QUALITY: Acceptable. FINDINGS: Skull/scalp: No lytic or blastic. lesions. No surgical changes. Parenchyma: Nonspecific bilateral frontoparietal patchy white matter hypodensity are likely related to small vessel ischemic changes. No acute hemorrhage, mass or acute major vascular territorial infarct. Arteries: No density suggestive of thrombosis. Dural sinuses: No abnormal density suggestive of thrombosis. Ventricles: No hydrocephalus or displacement. Extra-axial spaces: No abnormal density. Brain volume: Generalized age-related cerebral volume loss. Craniocervical junction: No mass, Chiari malformation, or basilar invagination. Sella: No mass. Paranasal/mastoid sinuses: Mild mucosal thickening in bilateral ethmoid sinuses. IMPRESSION: No acute intracranial abnormality. Mild supratentorial white matter microvascular ischemic changes. Generalized age-related cerebral volume loss. Signed by: Dr. Paula Andrew M.D. on 12/27/2019 7:43 PM Dictated By: PAULA ANDREW MD 41 Transcribed By: FADI on 12/27/191942 COPY TO: ADIN VELOZ MD~ Procedures 12 Lead ECG Interpretation ECG Interpretation : ECG: ECG 1 Teacher Asst: Interpreted by ED physician Date: Dec 27, 2019 Time: 19:00 Rhythm: sinus bradycardia Rate: bradycardia BPM: 48 QRS axis: normal Conduction: 1st degree ST segments normal: Yes T waves normal: Yes Clinical Impression: abnormal ECG Additional Comments low voltage Assessment & Plan Medical Decision Making MDM pt with c/o fatigue and weakness for 2 weeks cbc, cmp, ua ordered to eval for anemia, electrolyte abnormality, dehydration, renal insufficiency, uti I SPOKE WITH [employer] SANTIAGO IN OBS Assessment & Plan Final Impression: (1) Generalized weakness (2) UTI (urinary tract infection) (3) Bradycardia Depart Disposition: ADMITTED Last Vital Signs Date Time Temp Pulse Resp B/P (MAP) Pulse Ox O2 Delivery O2 Flow Rate FiO2 12/27/19 18:20 97.4 50 17 118/64 100 Room Air Home Meds Active Scripts Potassium Chloride (POTASSIUM CHLORIDE) 10 Meq Tab.er.prt, 20 MEQ PO DAILY for 10 Days, TAB Prov:ARABELLA HIRSCH TAPPER HELPER 11/23/15 [Aspirin] 81 MG TABEC No Conflict Check, 81 MG PO DAILY for 30 Days Prov:ARABELLA HIRSCH NP 11/23/15 Diltiazem Hcl* (CARDIZEM CD*) 120 Mg Cap.er.24h, 120 MG PO DAILY for 30 Days Prov:ARABELLA HIRSCH TAPPER HELPER 11/23/15 Reported Medications Ferrous Sulfate (FERROUS SULFATE) 325 Mg Tablet, 1 TAB PO BID 12/10/19 Pantoprazole Sodium* (PROTONIX) 40 Mg Tablet.dr, 40 MG PO DAILY, TAB 12/10/19 Zolpidem Tartrate (AMBIEN) 10 Mg Tablet, 10 MG PO HS PRN for SLEEP, #30 TAB 12/10/19 Oxybutynin Chloride (OXYBUTYNIN CHLORIDE) 5 Mg Tablet, 5 MG PO DAILY, #30 TAB 12/10/19 Triamterene/Hydrochlorothiazid (DYAZIDE 37.5-25 CAPSULE) 1 Each Capsule, 1 PO DAILY 11/01/19 Ondansetron (ZOFRAN ODT) 4 Mg Tab.rapdis, 4 MG PO BID PRN for NAUSEA, TAB 08/23/16 Levothyroxine Sodium (LEVOTHYROXINE SODIUM) 50 Mcg Tablet, 50 MCG PO DAILY, #30 TAB 08/23/16 Lubiprostone (AMITIZA) 24 Mcg Capsule, 24 MCG PO DAILY, CAP 11/22/15 ADIN VELOZ MD Dec 27, 2019 18:39
[2019-12-27 19:00] LABS: BASOPHILS # (AUTO) 0.1 (0.0-0.1); BASOPHILS % 0.8 % (0.0-1.0); EOSINOPHILS # (AUTO) 0.1 (0.0-0.4); EOSINOPHILS % 0.8 % (0.0-6.0); HEMATOCRIT 36.4 % (34.2-44.1); HEMOGLOBIN 11.3 g/dL (12.0-16.0); LYMPHOCYTES # (AUTO) 2.4 (1.0-3.2); LYMPHOCYTES % 23.8 % (18.0-39.1); MEAN CORPUSCULAR HEMOGLOBIN 29.2 pg (28-32); MEAN CORPUSCULAR VOLUME 94.1 fL (81-99); MONOCYTES # (AUTO) 0.9 (0.2-0.8); MONOCYTES % 8.4 % (4.4-11.3); NEUTROPHILS # (AUTO) 6.7 (2.1-6.9); NEUTROPHILS % 65.5 % (38.7-80.0); PLATELET COUNT 434 x10e3/uL (140-360); RED BLOOD COUNT 3.87 x10e6/uL (3.6-5.1); RED CELL DISTRIBUTION WIDTH 14.2 % (11.7-14.4)
[2019-12-27 19:12] LABS: ALBUMIN 3.6 g/dL (3.5-5.0); ALBUMIN/GLOBULIN RATIO 1.1 (0.8-2.0); ANION GAP 18.1 mmol/L (8-16); CREATININE, SERUM 1.27 mg/dL (0.57-1.11); POTASSIUM 5.1 mmol/L (3.5-5.1)
[2019-12-27 19:40] LABS: CREATINE KINASE MB 1.2 ng/mL (0-5.0)
--- OUTSIDE RECORDS SUMMARY | 2019-12-27 19:41 | XMS REPORT | Continuity of Care Document ---
Author Author [facility] t Organization [facility] Address 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 Name Role Phone MD VICKY LEE PCP SERA BURNS Attphys Unavailable SERA BURNS Admphydulce maria Unavailable Payers Payer Name Policy Type Policy Number Effective Date Expiration Date Dulce Maria vides [facility] [id number] 2019 00:00:00 [facility] Cdc Review Covid19 [id number] Formerly [facility] Problems Condition Name Condition Details Condition Category Status Onset Date Resolution Date Last Treatment Date Treating Clinician Comments Source Altered mental state Problem Active 2015-04-12 00:00:00 [facility] Confusion Problem Active 2015-04-12 00:00:00 [facility] Fall Problem Active 2015-04-12 00:00:00 [facility] Contusion of face Problem Active 2015-04-12 00:00:00 [facility] Infectious diarrhea in adult patient Problem Active [facility] Proctitis Problem Active [facility] Chest pain Problem Active [facility] Atrial fibrillation with rapid ventricular response Problem Active [facility] Allergies, Adverse Reactions, Alerts Allergy Name Allergy Type Status Severity Reaction(s) Onset Date Inacti ve Date Treating Clinician Comments Source Codeine Propensity to adverse reactions Active Mild thro w up 2016-08-23 00:00:00 [facility] Social History Social Habit Start Date Stop Date Quantity Comments Source Sex Assigned At 1935 00:00:00 1935 00:00:00 Female [facility] Medications Ordered Medication Name Filled Medication Name Start Date Stop Da te Current Medication? Ordering Clinician Indication Dosage Frequency Signature (SIG) Comments Components Source Aspirin Aspirin 2015-11-23 12:58:00 Yes 81 Daily [facility] Diltiazem Hcl (Cardizem Cd*) 120 Mg CAP.ER.24H Diltiaz em Hcl (Cardizem Cd*) 120 Mg CAP.ER.24H 2015-11-23 12:58:00 Yes 120 Daily [facility] Potassium Chloride Potassium Chloride 2015-11-23 12:58:00 Yes 20 Daily [facility] Ferrous Sulfate Ferrous Sulfate Yes 1 Twice A Day [facility] Levothyroxine Sodium Levothyroxine Sodium Yes 50 Daily [facility] Lubiprostone (Amitiza) 24 Mcg CAPSULE Lubiprostone (Amitiza) 24 Mcg CAPSULE Yes 24 Daily [facility] Ondansetron (Zofran Odt) 4 Mg TAB.RAPDIS Ondansetron ( Zofran Odt) 4 Mg TAB.RAPDIS Yes 4 Twice A Day as needed for N ausea [facility] Oxybutynin Chloride Oxybutynin Chloride Yes 5 Daily [facility] Pantoprazole Sodium (Protonix) 40 Mg TABLET. Pantopr azole Sodium (Protonix) 40 Mg TABLET. Yes 40 Daily [facility] Triamterene/Hydrochlorothiazid (Dyazide 37.5-25 Capsul e) 1 Each CAPSULE Triamterene/Hydrochlorothiazid (Dyazide 37.5-25 Capsule) 1 Each CAPSULE Yes 1 Daily [facility] Zolpidem Tartrate (Ambien) 10 Mg TABLET Zolpidem Tartrate (A mbien) 10 Mg TABLET Yes 10 Bedtime as needed for Sleep [facility] Alprazolam (Xanax*) 1 Mg TABLET Alprazolam (Xanax*) 1 Mg TABLET 2019-11-01 00:00:00 No .5 Bedtime as needed for Sleep [facility] Furosemide Furosemide 2015-11-23 00:00:00 No 20 Twi ce A Day [facility] Naproxen Naproxen 2015-11-23 00:00:00 No [facility] Vital Signs Vital Name Observation Time Observation Value Comments Source Body Temperature 2019-12-14 20:33:00 99.5 [degF] [facility] BMI (Body Mass Index) 2019-12-10 13:30:00 23.6 kg/m2 [facility] Weight 2019-12-10 07:43:00 117 [lb_av] [facility] Body Temperature 2019-11-01 08:38:00 97.8 [degF] [facility] BMI (Body Mass Index) 2019-10-31 11:56:00 23.6 kg/m2 [facility] Weight 2019-10-31 06:43:00 117 [lb_av] [facility] Procedures Procedure Date / Time Performed Performing Clinician [facility] e Computed tomography of chest without contrast 2019-12-11 00:00:0 [address] [facility] [address] of abdomen and pelvis without contrast 2019-12-11 00:00:00 [facility] Computed tomography of chest with contrast 2019-10-31 00:00:00 [facility] Encounters Start Date/Time End Date/Time Encounter Type Admission Type [facility] Facility Care Department Encounter ID Source 2019-12-10 08:24:00 2019-12-14 22:13:00 Discharged Inpatient 1 [facility] [id number] [facility] 2019-10-31 07:24:00 2019-11-01 10:21:00 Discharged Inpatient (obs) 1 [facility] [id number] [facility] Results Test Description Test Time Test Comments Results Result Comments Source Blood leukocytes automated count (number/volume) 2019-12-14 04:37:00 Test Item White Blood Count (test code = 6690-2) 10.91 4.8-10.8 [facility] automated count (number/volume)2019-12-14 04:37:00* Test Item Value Reference Range Interpretation Comments Red Blood Count (test code = 789-8) 3.18 3.6-5.1 [facility] (moles/volume)2019-12-14 04:37:00* Test Item Value Reference Range Interpretation Comments Hemoglobin (test code = 74464-7) 9.1 12.0-16.0 [facility]ated blood hematocrit (volume fraction)2019-12-14 04:37:00* Test Item Value Reference Range Interpretation Comments Hematocrit (test code = 4544-3) 28.8 34.2-44.1 [facility] erythrocyte mean corpuscular [id number] 04:37:00* Test Item Value Reference Range Interpretation Comments Mean Corpuscular Volume (test code = 787-2) 90.6 81-99 [facility] erythrocyte mean corpuscular hemoglobin (mass per erythrocyte)2019-12-14 04:37:00* Test Item Value Reference Range Interpretation Comments Mean Corpuscular Hemoglobin (test code = 785-6) 28.6 28-32 [facility] erythrocyte mean corpuscular hemoglobin concentration measurement (mass/volume)2019-12-14 04:37:00* Test Item Value Reference Range Interpretation Comments Mean Corpuscular Hemoglobin Concent (test code = 786-4) 31.6 31-35 [facility] HospitalRDW JedTk-[id number] 04:37:00* Test Item Value Reference Range Interpretation Comments Red Cell Distribution Width (test code = 97364-2) 13.1 11.7 -14.4 [facility] blood platelet count (count/volume)2019-12-14 04:37:00* Test Item Value Reference Range Interpretation Comments Platelet Count (test code = 777-3) 387 140-360 [facility] count as percentage of total bdhswnpxrj3266-54-44 04:37:00* Test Item Value Reference Range Interpretation Comments Neutrophils (%) (Auto) (test code = 45714-5) 72.4 38.7-80.0 [facility] HospitalAutom[facility] blood lymphocyte count as percentage ot total cjntkqcire8667-08-90 04:37:00* Test Item Value Reference Range Interpretation Comments Lymphocytes (%) (Auto) (test code = 736-9) 13.1 18.0-39.1 [facility] blood monocyte count as percentage of total ufgyxqmpzt6791-20-13 04:37:00* Test Item Value Reference Range Interpretation Comments Monocytes (%) (Auto) (test code = 5905-5) 12.6 4.4-11.3 [facility] blood eosinophil count as percentage of total mhjptuqtpi7601-33-82 04:37:00* Test Item Value Reference Range Interpretation Comments Eosinophils (%) (Auto) (test code = 713-8) 0.8 0.0-6.0 [facility] HospitalAutom[facility] blood basophil count as percentage of total rbpmanlvph6301-81-39 04:37:00* Test Item Value Reference Range Interpretation Comments Basophils (%) (Auto) (test code = 706-2) 0.5 0.0-1.0 [facility] HospitalFluoroscopic procedure less than one hour canyuptn0586-03-03 04:37:00* Test Item Value Reference Range Interpretation Comments IM GRANULOCYTES % (test code = IM GRANULOCYTES %) 0.6 0.0- 1.0 [facility] Hospital[facility] blood neutrophil count 2019-12-14 04:37:00* Test Item Value Reference Range Interpretation Comments Neutrophils # (Auto) (test code = 751-8) 7.9 2.1-6.9 [facility] HospitalBlood lymphocytes count (number/volume) 2019-12-14 04:37:00* Test Item Value Reference Range Interpretation Comments Lymphocytes # (Auto) (test code = 73821-8) 1.4 1.0-3.2 [facility] HospitalBlood monocytes automated count (number/volume)2019-12-14 04:37:00* Test Item Value Reference Range Interpretation Comments Monocytes # (Auto) (test code = 742-7) 1.4 0.2-0.8 [facility] HospitalAutomated blood eosinophil count 2019-12-14 04:37:00* Test Item Value Reference Range Interpretation Comments Eosinophils # (Auto) (test code = 711-2) 0.1 0.0-0.4 [facility] HospitalAutomated blood basophil count (count/volume)2019-12-14 04:37:00* Test Item Value Reference Range Interpretation Comments Basophils # (Auto) (test code = 704-7) 0.1 0.0-0.1 [facility] HospitalFluoroscopic procedure less than one hour snvtnfim6127-75-58 04:37:00* Test Item Value Reference Range Interpretation Comments Absolute Immature Granulocyte (auto (yasmin t code = Absolute Immature Granulocyte (auto) 0.07 0-0.1 [facility] sodium measurement (moles/volume)2019-12-14 04:37:00* Test Item Value Reference Range Interpretation Comments Sodium Level (test code = 2951-2) 137 136-145 [facility] potassium measurement (moles/volume)2019-12-14 04:37:00* Test Item Value Reference Range Interpretation Comments Potassium Level (test code = 2823-3) 3.7 3.5-5.1 [facility] chloride measurement (moles/volume)2019-12-14 04:37:00* Test Item Value Reference Range Interpretation Comments Chloride Level (test code = 2075-0) 105 98-107 [facility] carbon dioxide, total measurement (moles/volume)2019-12-14 04:37:00* Test Item Value Reference Range Interpretation Comments Carbon Dioxide Level (test code = 2028-9) 21 22-29 [facility] anion [id number] 04:37:00* Test Item Value Reference Range Interpretation Comments Anion Gap (test code = 08210-6) 14.7 8-16 [facility] urea nitrogen measurement (mass/volume)2019-12-14 04:37:00* Test Item Value Reference Range Interpretation Comments Blood Urea Nitrogen (test code = 3094-0) 14 10-13 [facility] creatinine measurement (mass/volume)2019-12-14 04:37:00* Test Item Value Reference Range Interpretation Comments Creatinine (test code = 2160-0) 0.80 0.57-1.11 [facility] urea nitrogen/creatinine mass [id number] 04:37:00* Test Item Value Reference Range Interpretation Comments BUN/Creatinine Ratio (test code = 3097-3) 18 09-12 [facility] HospitalEstimated glomerular filtration rate (GFR) xbukmqpowolrg8339-64-77 04:37:00* Test Item Value Reference Range Interpretation Comments Estimat Glomerular Filtration Rate (test code = 983354362) > 60 >60 Ranges were taken from the National Kidney Disease Education Program and the [facility] literature.Reference ranges:60 or greater: Eepeot80-64 ( for 3 consecutive months): Chronic kidney disease 15 or less: Kidney failureHouston Methodist Baytown HospitalGlucose qslsdoltziu0509-93-45 04:37:00* Test Item Value Reference Range Interpretation Comments Glucose Level (test code = GRO0920) 73 74-118 [facility] calcium measurement (mass/volume)2019-12-14 04:37:00* Test Item Value Reference Range Interpretation Comments Calcium Level (test code = 32925-5) 8.0 8.4-10.2 [facility] HospitalCapillary blood glucose measurement by glucometer (mass/volume)2019-12-13 20:07:00* Test Item Value Reference Range Interpretation Comments Bedside Glucose (test code = 72863-7) 92 70-120 Meter ID: [id number] Methodist Baytown HospitalCT ABDOMEN/PELVIS WO 2019-12-11 12:34:00 [place] [address] Patient Name: MATT FLORES MR #: [id number] : 1935 Age/Sex: 84/F Req #: [id number] Adm Physician: SERA BURNS MD Ordered by: SERA BURNS MD Report #: [id number] Location: [facility] Room/Bed: [facility] Procedure: [id number] CT/CT ABDOMEN/PELV IS WO Exam Date: 12/11/19 Exam Time: 1100 REPORT STATUS: Signed EXAM: CT Chest, Abdo men and Pelvis WITHOUT intravenous contrast INDICATION: Chest pain, abdom inal pain COMPARISON: Chest CT of 10/31/2019, CT abdomen and pelvis of 017 TECHNIQUE: The chest, abdomen and pelvis were scanned utilizing a multi detector helical scanner from the thoracic inlet to the pubic symphysis withou t administration of IV contrast. Coronal and sagittal reformations were obtain ed. IV CONTRAST: None ORAL CONTRAST: Water COMPL ICATIONS: None RADIATION DOSE: Total DLP: 565 mGy*cm Dose modulatio n, iterative reconstruction, and/or weight based adjustment of the mA/kV was u tilized to reduce the radiation dose to as low as reasonably achievable. FINDINGS: LINES/ TUBES: None. LUNGS AND AIRWAYS: The central airways ar e patent. No focal consolidation. No pulmonary edema. Mild dependent bilateral lower lobe subsegmental atelectasis. No suspicious pulmonary nodules. Right a pical calcified granuloma. PLEURA: The pleural spaces are clear. HEA RT AND MEDIASTINUM: The thyroid gland is normal. No mediastinal, hilar or axi llary lymphadenopathy. The heart is normal in size.. There is no pericardial effusion. Scattered atherosclerotic calcifications involve the aorta, coronar y arteries, and proximal great vessels. HEPATOBILIARY: No focal hepatic les ions. No biliary ductal dilatation. Absent gallbladder. SPLEEN: No splen omegaly. PANCREAS: No focal masses or ductal dilatation. ADRENALS: No adrenal nodules. KIDNEYS/URETERS: 5 mm nonobstructive left lower pole renal ca lculus. No hydronephrosis or hydroureter. 11 mm hyperdense exophytic lesion of the lower pole of the left kidney (axial image 65) is incompletely evaluated on this noncontrast study. PELVIC ORGANS/BLADDER: Unremarkable. PERITON EUM / RETROPERITONEUM: No free air or fluid. LYMPH NODES: No lymphadenopathy. VESSELS: Moderate atherosclerotic calcifications of the nonaneurysmal abdomina l aorta and major branches. GI TRACT: Prominent diverticulosis. No CT nolvia dence of diverticulitis. Status post gastric bypass. Asymmetric soft tissue th ickening of the posterior rectal wall. No bowel obstruction. BONES AND SO FT TISSUES: Herniation of a small loop of small bowel at an anterior abdominal wall defect without evidence of obstruction (axial image 70). Lower anterior abdominal wall soft tissue stranding and subcutaneous soft tissue emphysema, p ossibly related to subcutaneous injections. IMPRESSION: No focal pneumon ia or pulmonary edema. Asymmetric soft tissue thickening of the posterior r ectal wall. Recommend correlation with colonoscopy if not already performed. 5mm nonobstructive left lower pole renal calculus. No hydronephrosis. 1 1m hyperdense exophytic lesion of the lower pole of left kidney may be a hyper dense cyst but is incompletely evaluated on this noncontrast CT. Further evalu ation can be made with ultrasound or renal mass protocol CT. Status post ga stric bypass. Herniation of a small loop of small bowel through an anterior ab dominal wall defect without associated obstruction. Lower anterior abdomina l wall soft tissue stranding and subcutaneous soft tissue emphysema, possibly related to subcutaneous injections. Signed by: Vipul Cordon MD on 12/10 12:48 PM Dictated By: VIPUL CORDON MD 1248 Transcribed By: FADI on 12/11/19 1248 COPY TO: SERA BURNS MD CT CHEST [id number] 12:34:00 [place] [address] Patient Name: MATT FLORES MR #: [id number] : 1935 Age/Sex: 84/F Req #: [id number] Adm Physician: SERA BURNS MD Ordered by: SERA BURNS MD Report #: [id number] Location: MED/SURG2 Room/Bed: [facility] Procedure: [id number] CT/CT CHEST WO Ex am Date: 12/11/19 Exam Time: 1100 REPORT STATUS: Signed EXAM: CT Chest, Abdomen and P juanjo WITHOUT intravenous contrast INDICATION: Chest pain, abdominal pain COMPARISON: Chest CT of 10/31/2019, CT abdomen and pelvis of 08/23/2016 TECHNIQUE: The chest, abdomen and pelvis were scanned utilizing a multidetector helical scanner from the thoracic inlet to the pubic symphysis without admin istration of IV contrast. Coronal and sagittal reformations were obtained. IV CONTRAST: None ORAL CONTRAST: Water COMPLICATIONS: None RADIATION DOSE: Total DLP: 565 mGy*cm Dose modulation, iterat amelie reconstruction, and/or weight based adjustment of the mA/kV was utilized t o reduce the radiation dose to as low as reasonably achievable. FINDINGS : LINES/ TUBES: None. LUNGS AND AIRWAYS: The central airways are patent. No focal consolidation. No pulmonary edema. Mild dependent bilateral lower lo be subsegmental atelectasis. No suspicious pulmonary nodules. Right apical devorah cified granuloma. PLEURA: The pleural spaces are clear. HEART AND ME DIASTINUM: The thyroid gland is normal. No mediastinal, hilar or axillary lym phadenopathy. The heart is normal in size.. There is no pericardial effusion. Scattered atherosclerotic calcifications involve the aorta, coronary arterie s, and proximal great vessels. HEPATOBILIARY: No focal hepatic lesions. No biliary ductal dilatation. Absent gallbladder. SPLEEN: No splenomegaly. PANCREAS: No focal masses or ductal dilatation. ADRENALS: No adrenal n odules. KIDNEYS/URETERS: 5 mm nonobstructive left lower pole renal calculus. N o hydronephrosis or hydroureter. 11 mm hyperdense exophytic lesion of the lowe r pole of the left kidney (axial image 65) is incompletely evaluated on this noncontrast study. PELVIC ORGANS/BLADDER: Unremarkable. PERITONEUM / RET ROPERITONEUM: No free air or fluid. LYMPH NODES: No lymphadenopathy. VESSELS : Moderate atherosclerotic calcifications of the nonaneurysmal abdominal aorta and major branches. GI TRACT: Prominent diverticulosis. No CT evidence of diverticulitis. Status post gastric bypass. Asymmetric soft tissue thickening of the posterior rectal wall. No bowel obstruction. BONES AND SOFT TISSUE S: Herniation of a small loop of small bowel at an anterior abdominal wall def ect without evidence of obstruction (axial image 70). Lower anterior abdominal wall soft tissue stranding and subcutaneous soft tissue emphysema, possibly r elated to subcutaneous injections. IMPRESSION: No focal pneumonia or pul monary edema. Asymmetric soft tissue thickening of the posterior rectal wal l. Recommend correlation with colonoscopy if not already performed. 5mm n onobstructive left lower pole renal calculus. No hydronephrosis. 11m hyperd ense exophytic lesion of the lower pole of left kidney may be a hyperdense cys t but is incompletely evaluated on this noncontrast CT. Further evaluation can be made with ultrasound or renal mass protocol CT. Status post gastric byp ass. Herniation of a small loop of small bowel through an anterior abdominal w all defect without associated obstruction. Lower anterior abdominal wall so ft tissue stranding and subcutaneous soft tissue emphysema, possibly related t o subcutaneous injections. Signed by: Vipul Cordon MD on 12/11/2019 12: 48 PM Dictated By: VIPUL CORDON MD 1248 Transcribed By: FADI on 12/11/19 1248 COPY TO: SERA QUIROS MD Phosphorus [id number] 04:50:00* Test Item Value Reference Range Interpretation Comments Phosphorus Level (test code = NFS2232) 3.4 2.3-4.7 [facility] magnesium measurement (mass/volume)2019-12-11 04:50:00* Test Item Value Reference Range Interpretation Comments Magnesium Level (test code = 59056-6) 2.1 1.3-2.1 [facility] total bilirubin measurement (mass/volume)2019-12-11 04:50:00* Test Item Value Reference Range Interpretation Comments Total Bilirubin (test code = 1975-2) 0.2 0.2-1.2 [facility] HospitalFluoroscopic procedure less than one hour [id number] 04:50:00* Test Item Value Reference Range Interpretation Comments Aspartate Amino Transf (AST/SGOT) (test code = Aspartate Amino Transf (AST/SGOT)) 27 5-34 [facility] alanine aminotransferase measurement (enzymatic activity/volume)2019-12-11 04:50:00* Test Item Value Reference Range Interpretation Comments Alanine Aminotransferase (ALT/SGPT) (test code = 1742-6) 14 0-55 [facility] protein measurement (mass/volume)2019-12-11 04:50:00* Test Item Value Reference Range Interpretation Comments Total Protein (test code = 2885-2) 5.7 6.5-8.1 [facility] albumin measurement (mass/volume)2019-12-11 04:50:00* Test Item Value Reference Range Interpretation Comments Albumin (test code = 1751-7) 3.4 3.5-5.0 [facility] HospitalPlasma globulin measurement (mass/volume) 2019-12-11 04:50:00* Test Item Value Reference Range Interpretation Comments Globulin (test code = 35526-1) 2.3 2.3-3.5 [facility] albumin/globulin mass uoagh2769-12-34 04:50:00* Test Item Value Reference Range Interpretation Comments Albumin/Globulin Ratio (test code = 1759-0) 1.5 0.8-2.0 [facility] alkaline phosphatase measurement (enzymatic activity/volume)2019-12-11 04:50:00* Test Item Value Reference Range Interpretation Comments Alkaline Phosphatase (test code = 6768-6) 112 40-150 [facility] triglyceride measurement (mass/volume)2019-12-11 04:50:00* Test Item Value Reference Range Interpretation Comments Triglycerides Level (test code = 2571-8) 158 0-149 [facility] cholesterol measurement (mass/volume)2019-12-11 04:50:00* Test Item Value Reference Range Interpretation Comments Cholesterol Level (test code = 2093-3) 147 0-199 Less than 200 mg/dL Low Eeuc596 - 239 mg/dL Borderline Sybt085 m g/dl and greater High Risk [facility] cholesterol in LDL measurement (mass/volume) 2019-12-11 04:50:00* Test Item Value Reference Range Interpretation Comments LDL Cholesterol (test code = 2089-1) 66 60-130 [facility] cholesterol in HDL measurement (mass/volume)2019-12-11 04:50:00* Test Item Value Reference Range Interpretation Comments HDL Cholesterol (test code = 2085-9) 49 40-60 [facility] total cholesterol/cholesterol in HDL mass [id number] 04:50:00* Test Item Value Reference Range Interpretation Comments Cholesterol/HDL Ratio (test code = 9830-1) 3.0 3.0-3.6 [facility] creatine kinase measurement (enzymatic activity/volume)2019-12-11 04:50:00* Test Item Value Reference Range Interpretation Comments Creatine Kinase (test code = 2157-6) 33 29-168 [facility] creatine kinase MB measurement (mass/volume)2019-12-11 04:50:00* Test Item Value Reference Range Interpretation Comments Creatine Kinase MB (test code = 85482-7) 1.50 0-5.0 [facility] HospitalTroponin I measurement by highly sensitive enzyme sypplvdeurj0995-71-76 04:50:00* Test Item Value Reference Range Interpretation Comments Troponin I (test code = 96578-3) 0.042 0-0.300 [facility])2019-12-10 08:54:00 [facility] [address] [place] [address] Patient Name: MATT FLORES MR #: [id number] : 1935 Age/Sex: 84/F Req #: [id number] Adm Physician: SERA BURNS MD Ordered by: JOSH HARDEN MD Report #: [id number] Location: [facility] Room/Bed: [facility] Procedure: [id number] DX/CHEST SINGLE (PORTABLE) Exam Date: 12/10/19 Exam Time: 753 REPORT STATUS: Signed EXAMINATION: CHEST SINGLE (PORTABLE) INDICATION: Chest pain, shortness of breath COMPARISON: Chest radiograph and chest CT of 10/31/2019 FINDINGS: LINES/TUBES:EKG leads overlie the chest. LUNGS:The lungs are moderately i nflated. There is perihilar fullness and indistinctness of the pulmonary vascu lature. PLEURA:No pleural effusion or pneumothorax. MEDIASTINUM:The ca rdiomediastinal silhouette appears normal in size and shape. BONES/SOFT TIS SUES:No acute osseous injury. Old healed left posterior lateral rib fractures. ABDOMEN:No free air under the diaphragm. IMPRESSION: Central pu lmonary vascular congestion. No focal pneumonia or airspace edema. Signed b y: Vipul Cordon MD on 12/10/2019 8:56 AM Dictated By: VIPUL CORDON MD Electr onically Signed By: VIPUL CORDON MD on 12/10/19855 Transcribed By: FADI on 0 12/10/19 08 COPY TO: JOSH HARDEN MD Prothrombin time (PT) in platelet poor plasma by coagulation gokad6097-74-35 07:30:00* Test Item Value Reference Range Interpretation Comments Prothrombin Time (test code = 5902-2) 12.3 11.9-14.5 [facility] HospitalINR in Platelet poor plasma by Coagulation oalzc3452-37-29 07:30:00* Test Item Value Reference Range Interpretation Comments Prothromb Time International Ratio (test code = 6301-6) 0.87 Oral Anticoagulant Therapy INR Values:1. Low Intensity Therapy 1.5 - 2.02 . Moderate Intensity Therapy 2.0 - 3.03. High Intensity Therapy(1) 2.5 - 3. 54. High Intensity Therapy(2) 3.0 - 4.05. Panic Value INR > 5.0 [facility] HospitalActivated partial thromboplastin time (aPTT) in platelet poor plasma by coagulation wzlfj3698-92-96 07:30:00* Test Item Value Reference Range Interpretation Comments Activated Partial Thromboplast Time (test code = 63475-0) 27.3 23.8-35.5 [facility] HospitalBNP Mrl-eTmr3647-16-21 07:30:00* Test Item Value Reference Range Interpretation Comments B-Type Natriuretic Peptide (test code = 02557-5) 379.6 0-100 [facility] plasma thyrotropin measurement by detection limit <= 0.005 miu/l (units/volume)2019-12-10 07:30:00* Test Item Value Reference Range Interpretation Comments Thyroid Stimulating Hormone (TSH) (test code = 67968-8) 2.043 0.350-4.940 [facility] HospitalFluoroscopic procedure less than one hour bfklmttf4248-73-68 07:30:00* Test Item Value Reference Range Interpretation Comments Coronavirus (PCR) (test code = Coronavirus (PCR)) NOT DETECTED NOTD ETECTED SARS-CoV-2 PCRHologic Aptima SARS-CoV-2 assay is a nucleic amplification test in tended for the qualitative detection of RNA from SARS-CoV-2 from nasopharyngeal ([employer]) specimens. It is used under Emergency Use Authorization (EUA) by FDA.A posi tive result is indicative of the presence of SARS-CoV-2 RNA. Clinical correlatio n with patient history and other diagnostic information is necessary to determin e patient infection status.A negative (Not Detected) result does not preclude SA RS-CoV-2 infection. Clinical Correlation with patient history and other diagnost ic information should be used in patient management decisions.Invalid: Unable to generate a valid result on this specimen. Please submit a new specimen for repr at testing oc clinically indicated.Tesing performed by:[facility] Laboratory Services[address] [place] [address] [id number], Nelson trimble MD, PhDHouston Methodist [facility] HospitalBlood leukocytes automated count (number/volume)2019-11-01 05:00:00* Test Item Value Reference Range Interpretation Comments White Blood Count (test code = 6690-2) 6.27 4.8-10.8 [facility] HospitalBlood erythrocytes automated count (number/volume)2019-11-01 05:00:00* Test Item Value Reference Range Interpretation Comments Red Blood Count (test code = 789-8) 3.16 3.6-5.1 [facility] HospitalBlood hemoglobin measurement (moles/volume)2019-11-01 05:00:00* Test Item Value Reference Range Interpretation Comments Hemoglobin (test code = 33032-1) 9.6 12.0-16.0 [facility] HospitalAutomated blood hematocrit (volume fraction)2019-11-01 05:00:00* Test Item Value Reference Range Interpretation Comments Hematocrit (test code = 4544-3) 30.2 34.2-44.1 [facility] HospitalAutomated erythrocyte mean corpuscular tzctvx7876-71-80 05:00:00* Test Item Value Reference Range Interpretation Comments Mean Corpuscular Volume (test code = 787-2) 95.6 81-99 [facility] HospitalAutomated erythrocyte mean corpuscular hemoglobin (mass per erythrocyte)2019-11-01 05:00:00* Test Item Value Reference Range Interpretation Comments Mean Corpuscular Hemoglobin (test code = 785-6) 30.4 28-32 [facility] HospitalAutomated erythrocyte mean corpuscular hemoglobin concentration measurement (mass/volume)2019-11-01 05:00:00* Test Item Value Reference Range Interpretation Comments Mean Corpuscular Hemoglobin Concent (test code = 786-4) 31.8 31-35 [facility] HospitalRDW KyrTt-Wbt9315-21-13 05:00:00* Test Item Value Reference Range Interpretation Comments Red Cell Distribution Width (test code = 04428-8) 13.9 11.7 -14.4 [facility] HospitalAutomated blood platelet count (count/volume)2019-11-01 05:00:00* Test Item Value Reference Range Interpretation Comments Platelet Count (test code = 777-3) 295 140-360 [facility] HospitalAutomated blood segmented neutrophil count as percentage of total xefwylkwys4256-37-20 05:00:00* Test Item Value Reference Range Interpretation Comments Neutrophils (%) (Auto) (test code = 83551-2) 56.2 38.7-80.0 [facility] HospitalAutomated blood lymphocyte count as percentage ot total qrizdivznl3815-31-68 05:00:00* Test Item Value Reference Range Interpretation Comments Lymphocytes (%) (Auto) (test code = 736-9) 27.9 18.0-39.1 [facility] HospitalAutomated blood monocyte count as percentage of total lmxaystvpe7685-34-54 05:00:00* Test Item Value Reference Range Interpretation Comments Monocytes (%) (Auto) (test code = 5905-5) 12.3 4.4-11.3 [facility] HospitalAutomated blood eosinophil count as percentage of total enszihmamr5336-37-54 05:00:00* Test Item Value Reference Range Interpretation Comments Eosinophils (%) (Auto) (test code = 713-8) 2.1 0.0-6.0 [facility] HospitalAutomated blood basophil count as percentage of total tkshhduajp0314-48-74 05:00:00* Test Item Value Reference Range Interpretation Comments Basophils (%) (Auto) (test code = 706-2) 1.0 0.0-1.0 [facility] HospitalFluoroscopic procedure less than one hour voaovmrd5723-36-41 05:00:00* Test Item Value Reference Range Interpretation Comments IM GRANULOCYTES % (test code = IM GRANULOCYTES %) 0.5 0.0- 1.0 [facility] HospitalAutomated blood neutrophil count 2019-11-01 05:00:00* Test Item Value Reference Range Interpretation Comments Neutrophils # (Auto) (test code = 751-8) 3.5 2.1-6.9 [facility] HospitalBlood lymphocytes count (number/volume) 2019-11-01 05:00:00* Test Item Value Reference Range Interpretation Comments Lymphocytes # (Auto) (test code = 52611-6) 1.8 1.0-3.2 [facility] HospitalBlood monocytes automated count (number/volume)2019-11-01 05:00:00* Test Item Value Reference Range Interpretation Comments Monocytes # (Auto) (test code = 742-7) 0.8 0.2-0.8 [facility] HospitalAutomated blood eosinophil count 2019-11-01 05:00:00* Test Item Value Reference Range Interpretation Comments Eosinophils # (Auto) (test code = 711-2) 0.1 0.0-0.4 [facility] HospitalAutomated blood basophil count (count/volume)2019-11-01 05:00:00* Test Item Value Reference Range Interpretation Comments Basophils # (Auto) (test code = 704-7) 0.1 0.0-0.1 [facility] HospitalFluoroscopic procedure less than one hour ixtzsylc3372-96-81 05:00:00* Test Item Value Reference Range Interpretation Comments Absolute Immature Granulocyte (auto (yasmin t code = Absolute Immature Granulocyte (auto) 0.03 0-0.1 [facility]ererum or plasma sodium measurement (moles/volume)2019-11-01 05:00:00* Test Item Value Reference Range Interpretation Comments Sodium Level (test code = 2951-2) 139 136-145 [facility] Centererum or plasma potassium measurement (moles/volume)2019-11-01 05:00:00* Test Item Value Reference Range Interpretation Comments Potassium Level (test code = 2823-3) 4.0 3.5-5.1 [facility] Centererum or plasma chloride measurement (moles/volume)2019-11-01 05:00:00* Test Item Value Reference Range Interpretation Comments Chloride Level (test code = 2075-0) 111 98-107 [facility] Centererum or plasma carbon dioxide, total measurement (moles/volume)2019-11-01 05:00:00* Test Item Value Reference Range Interpretation Comments Carbon Dioxide Level (test code = 2028-9) 21 22-29 [facility] Centererum or plasma anion fuo1951-48-30 05:00:00* Test Item Value Reference Range Interpretation Comments Anion Gap (test code = 57169-9) 11.0 8-16 [facility]ererum or plasma urea nitrogen measurement (mass/volume)2019-11-01 05:00:00* Test Item Value Reference Range Interpretation Comments Blood Urea Nitrogen (test code = 3094-0) 13 7-26 [facility]ererum or plasma creatinine measurement (mass/volume)2019-11-01 05:00:00* Test Item Value Reference Range Interpretation Comments Creatinine (test code = 2160-0) 0.80 0.57-1.11 [facility]ererum or plasma urea nitrogen/creatinine mass fdkze5554-35-97 05:00:00* Test Item Value Reference Range Interpretation Comments BUN/Creatinine Ratio (test code = 3097-3) 16 6-25 [facility] HospitalEstimated glomerular filtration rate (GFR) qlqqwyxdheeym3212-15-68 05:00:00* Test Item Value Reference Range Interpretation Comments Estimat Glomerular Filtration Rate (test code = 403405501) > 60 >60 Ranges were taken from the National Kidney Disease Education Program and the [facility] literature.Reference ranges:60 or greater: Fowbqm17-51 ( for 3 consecutive months): Chronic kidney disease 15 or less: Kidney failureHouston Methodist Baytown HospitalGlucose hthlmkbwboe4192-85-16 05:00:00* Test Item Value Reference Range Interpretation Comments Glucose Level (test code = MFZ4024) 85 74-118 [facility]ererum or plasma calcium measurement (mass/volume)2019-11-01 05:00:00* Test Item Value Reference Range Interpretation Comments Calcium Level (test code = 80118-9) 8.3 8.4-10.2 [facility] Centererum or plasma total bilirubin measurement (mass/volume)2019-11-01 05:00:00* Test Item Value Reference Range Interpretation Comments Total Bilirubin (test code = 1975-2) 0.2 0.2-1.2 [facility] HospitalFluoroscopic procedure less than one hour naepgszo5007-93-17 05:00:00* Test Item Value Reference Range Interpretation Comments Aspartate Amino Transf (AST/SGOT) (test code = Aspartate Amino Transf (AST/SGOT)) 16 5-34 [facility] Centererum or plasma alanine aminotransferase measurement (enzymatic activity/volume)2019-11-01 05:00:00* Test Item Value Reference Range Interpretation Comments Alanine Aminotransferase (ALT/SGPT) (test code = 1742-6) 9 0-55 [facility] Centererum or plasma protein measurement (mass/volume)2019-11-01 05:00:00* Test Item Value Reference Range Interpretation Comments Total Protein (test code = 2885-2) 5.2 6.5-8.1 [facility] Centererum or plasma albumin measurement (mass/volume)2019-11-01 05:00:00* Test Item Value Reference Range Interpretation Comments Albumin (test code = 1751-7) 2.6 3.5-5.0 [facility] HospitalPlasma globulin measurement (mass/volume) 2019-11-01 05:00:00* Test Item Value Reference Range Interpretation Comments Globulin (test code = 31788-3) 2.6 2.3-3.5 [facility]ererum or plasma albumin/globulin mass kfrsy6642-37-39 05:00:00* Test Item Value Reference Range Interpretation Comments Albumin/Globulin Ratio (test code = 1759-0) 1.0 0.8-2.0 [facility] Centererum or plasma alkaline phosphatase measurement (enzymatic activity/volume)2019-11-01 05:00:00* Test Item Value Reference Range Interpretation Comments Alkaline Phosphatase (test code = 6768-6) 88 40-150 [facility]ererum or plasma triglyceride measurement (mass/volume)2019-11-01 05:00:00* Test Item Value Reference Range Interpretation Comments Triglycerides Level (test code = 2571-8) 151 0-149 [facility] Centererum or plasma cholesterol measurement (mass/volume)2019-11-01 05:00:00* Test Item Value Reference Range Interpretation Comments Cholesterol Level (test code = 2093-3) 145 0-199 Less than 200 mg/dL Low Wayb111 - 239 mg/dL Borderline Uvgy091 m g/dl and greater High Risk [facility]ererum or plasma cholesterol in LDL measurement (mass/volume) 2019-11-01 05:00:00* Test Item Value Reference Range Interpretation Comments LDL Cholesterol (test code = 2089-1) 72 60-130 [facility] Centererum or plasma cholesterol in HDL measurement (mass/volume)2019-11-01 05:00:00* Test Item Value Reference Range Interpretation Comments HDL Cholesterol (test code = 2085-9) 43 40-60 [facility] Centererum or plasma total cholesterol/cholesterol in HDL mass ggndc4507-40-17 05:00:00* Test Item Value Reference Range Interpretation Comments Cholesterol/HDL Ratio (test code = 9830-1) 3.4 3.0-3.6 [facility] Centererum or plasma creatine kinase measurement (enzymatic activity/volume)2019-10-31 18:46:00* Test Item Value Reference Range Interpretation Comments Creatine Kinase (test code = 2157-6) 39 29-168 [facility] Centererum or plasma creatine kinase MB measurement (mass/volume)2019-10-31 18:46:00* Test Item Value Reference Range Interpretation Comments Creatine Kinase MB (test code = 35372-4) 1.40 0-5.0 [facility] HospitalTroponin I measurement by highly sensitive enzyme shvbkbzurqs3637-66-86 18:46:00* Test Item Value Reference Range Interpretation Comments Troponin I (test code = 71727-1) 0.013 0-0.300 [facility] HospitalCT CHEST P6406-92-49 11:44:00 [place] [address] Patient Name: MATT FLORES MR #: [id number] : 1935 Age/Sex: 84/F Req #: [id number] Adm Physician: SERA BURNS MD Ordered by: SERA BURNS MD Report #: [id number] Location: MED/SURG Room/Bed: [facility] Procedure: [id number] CT/CT CHEST W [place] m Date: 10/31/19 Exam Time: 1115 REPORT STATUS: Signed EXAM: CT Chest WITH intravenou s contrast 10/31/2019 11:26 AM INDICATION: Chest pain COMPARISON: Chest radi ograph of earlier the same day TECHNIQUE: Chest was scanned utilizing a [employer] helical scanner from the lung apex through the level of the adrenal glands after administration of IV contrast. Coronal and sagittal reformations were obtained. Routine protocol was performed. IV CONTRAST: 100mL Isovue 370 RADIATION DOSE: Total DLP: 483 mGy*cm. Dose modulation, iterative recons truction, and/or weight based adjustment of the mA/kV was utilized to reduce t he radiation dose to as low as reasonably achievable. COMPLICATIONS: None FINDINGS: LINES/ TUBES: None. LUNGS AND AIRWAYS: The central airway s are patent. No focal consolidation. Mild bibasilar dependent subsegmental at electasis. Mild smooth interlobular septal thickening compatible with componen t of mild interstitial pulmonary edema. PLEURA: The pleural spaces are clear. HEART AND MEDIASTINUM: The thyroid gland is normal. No mediastinal, hilar or axillary lymphadenopathy. The heart is not enlarged. No pericardial effusion. Scattered atherosclerotic calcifications involve the thoracic aorta , coronary arteries, and proximal great vessels. No aortic aneurysm or dissect ion. Dense mitral annular calcifications.. No pulmonary embolism. No right hea rt strain. UPPER ABDOMEN: No acute findings in the upper abdomen. BONE S: No acute osseous injury. No spacious lytic or blastic lesions. SOFT TISS UES: Unremarkable. IMPRESSION: Mild pulmonary and her social edema. No focal pneumonia. No pulmonary embolism. Signed by: Vipul Cordon MD on 02/2020 11:51 AM Dictated By: VIPUL CORDON MD 1151 Transcribed By: FADI on 10/31/19 1151 INSTRUMENT LENS GENERATOR Y TO: SERA BURNS MD Urine color ergxtavrxlpdz4648-87-93 08:37:00* Test Item Value Reference Range Interpretation Comments Urine Color (test code = 5778-6) YELLOW YELLOW [facility] HospitalUrine szzhvrp4928-70-05 08:37:00* Test Item Value Reference Range Interpretation Comments Urine Clarity (test code = 81204-1) CLEAR CLEAR [facility] Centerpecific gravity of Urine by Test strip 2019-10-31 08:37:00* Test Item Value Reference Range Interpretation Comments Urine Specific [place] (test code = 5811-5) 1.025 1.010-1.02 5 [facility] HospitalUrine pH measurement by automated test jrdkr9402-42-53 08:37:00* Test Item Value Reference Range Interpretation Comments Urine pH (test code = 57297-2) 5.5 5-7 [facility] HospitalUrine leukocyte esterase detection by vqwsulrw7147-91-38 08:37:00* Test Item Value Reference Range Interpretation Comments Urine Leukocyte Esterase (test code = 5799-2) SMALL NEGATIVE [facility] HospitalUrine nitrite bzbmkdkny0508-39-18 08:37:00* Test Item Value Reference Range Interpretation Comments Urine Nitrite (test code = 28788-6) POSITIVE NEGATIVE [facility] HospitalUrine protein measurement by test strip (mass/volume)2019-10-31 08:37:00* Test Item Value Reference Range Interpretation Comments Urine Protein (test code = 5804-0) NEGATIVE NEGATIVE [facility] HospitalUrine glucose znaorstiw1603-62-85 08:37:00* Test Item Value Reference Range Interpretation Comments Urine Glucose (UA) (test code = 2349-9) NEGATIVE NEGATIVE [facility] HospitalUrine ketones detection by automated test esrgu0980-06-38 08:37:00* Test Item Value Reference Range Interpretation Comments Urine Ketones (test code = 63256-9) NEGATIVE NEGATIVE [facility] HospitalUrine urobilinogen measurement by test strip (mass/volume)2019-10-31 08:37:00* Test Item Value Reference Range Interpretation Comments Urine Urobilinogen (test code = 36071-1) 0.2 0.2-1 [facility] HospitalUrine total bilirubin measurement (mass/volume)2019-10-31 08:37:00* Test Item Value Reference Range Interpretation Comments Urine Bilirubin (test code = 1978-6) NEGATIVE NEGATIVE [facility] HospitalUrine erythrocytes bdpzotwnr5618-25-14 08:37:00* Test Item Value Reference Range Interpretation Comments Urine Blood (test code = 18410-1) TRACE NEGATIVE [facility] HospitalAutomated urine sediment leukocyte count by microscopy (number/high power field)2019-10-31 08:37:00* Test Item Value Reference Range Interpretation Comments Urine WBC (test code = 5821-4) 21-50 0-5 [facility] HospitalErythrocytes detection in urine sediment by light chbningoks7163-03-90 08:37:00* Test Item Value Reference Range Interpretation Comments Urine RBC (test code = 65234-9) 0-5 0-5 [facility] HospitalBacteria detection in urine sediment by light uwpyxyrqrt6267-92-20 08:37:00* Test Item Value Reference Range Interpretation Comments Urine Bacteria (test code = 75147-1) MANY NONE [facility] HospitalEpithelial cells detection in urine sediment by light ettbrnoivt5852-66-18 08:37:00* Test Item Value Reference Range Interpretation Comments Urine Epithelial Cells (test code = 91178-8) FEW NONE [facility] HospitalTransitional cells detection in urine sediment by light lkgemlzgkk5885-54-54 08:37:00* Test Item Value Reference Range Interpretation Comments Urine Transitional Epithelial Cells (test code = 8249-5) FEW NONE [facility] HospitalBacterial urine amcjfej2505-84-44 08:37:00* Test Item Value Reference Range Interpretation Comments Urine Culture (test code = 630-4) GRAM NEGATIVE BACILLUS [facility] HospitalUrine color gdcgpnhmxektt0224-17-81 08:37:00* Test Item Value Reference Range Interpretation Comments Urine Color (test code = 5778-6) YELLOW YELLOW [facility] HospitalUrine wddaeln6349-27-45 08:37:00* Test Item Value Reference Range Interpretation Comments Urine Clarity (test code = 88424-1) CLEAR CLEAR [facility] Centerpecific gravity of Urine by Test strip 2019-10-31 08:37:00* Test Item Value Reference Range Interpretation Comments Urine Specific [place] (test code = 5811-5) 1.025 1.010-1.02 5 [facility] HospitalUrine pH measurement by automated test adaeo1292-01-71 08:37:00* Test Item Value Reference Range Interpretation Comments Urine pH (test code = 71379-7) 5.5 5-7 [facility] HospitalUrine leukocyte esterase detection by utepfjct4877-63-50 08:37:00* Test Item Value Reference Range Interpretation Comments Urine Leukocyte Esterase (test code = 5799-2) SMALL NEGATIVE [facility] HospitalUrine nitrite pmxxratqv9396-65-38 08:37:00* Test Item Value Reference Range Interpretation Comments Urine Nitrite (test code = 85636-3) POSITIVE NEGATIVE [facility] HospitalUrine protein measurement by test strip (mass/volume)2019-10-31 08:37:00* Test Item Value Reference Range Interpretation Comments Urine Protein (test code = 5804-0) NEGATIVE NEGATIVE [facility] HospitalUrine glucose tlrxmtpmz9577-29-14 08:37:00* Test Item Value Reference Range Interpretation Comments Urine Glucose (UA) (test code = 2349-9) NEGATIVE NEGATIVE [facility] HospitalUrine ketones detection by automated test budjl4504-03-48 08:37:00* Test Item Value Reference Range Interpretation Comments Urine Ketones (test code = 92329-5) NEGATIVE NEGATIVE [facility] HospitalUrine urobilinogen measurement by test strip (mass/volume)2019-10-31 08:37:00* Test Item Value Reference Range Interpretation Comments Urine Urobilinogen (test code = 84668-6) 0.2 0.2-1 [facility] HospitalUrine total bilirubin measurement (mass/volume)2019-10-31 08:37:00* Test Item Value Reference Range Interpretation Comments Urine Bilirubin (test code = 1978-6) NEGATIVE NEGATIVE [facility] HospitalUrine erythrocytes tyuauyddd2025-76-63 08:37:00* Test Item Value Reference Range Interpretation Comments Urine Blood (test code = 68984-9) TRACE NEGATIVE [facility] HospitalAutomated urine sediment leukocyte count by microscopy (number/high power field)2019-10-31 08:37:00* Test Item Value Reference Range Interpretation Comments Urine WBC (test code = 5821-4) 21-50 0-5 [facility] HospitalErythrocytes detection in urine sediment by light ynkegnpemk2437-34-47 08:37:00* Test Item Value Reference Range Interpretation Comments Urine RBC (test code = 99044-0) 0-5 0-5 [facility] HospitalBacteria detection in urine sediment by light jfgxybfcua4212-21-45 08:37:00* Test Item Value Reference Range Interpretation Comments Urine Bacteria (test code = 18334-7) MANY NONE [facility] HospitalEpithelial cells detection in urine sediment by light hplwwqkukp0604-37-38 08:37:00* Test Item Value Reference Range Interpretation Comments Urine Epithelial Cells (test code = 96734-6) FEW NONE [facility] HospitalTransitional cells detection in urine sediment by light mjbxmludij7416-78-27 08:37:00* Test Item Value Reference Range Interpretation Comments Urine Transitional Epithelial Cells (test code = 8249-5) FEW NONE [facility] [id number] 08:37:00* Test Item Value Reference Range Interpretation Comments Urine Culture (test code = 630-4) ENTEROBACTER AEROGENES [facility]2019-10-31 07:20:00 [facility] [address] [address] Patient Name: MATT FLORES MR #: [id number] : 1935 Age/Sex: 84/F Req #: [id number] Adm Physician: Ordered by: JOSH HARDEN MD Report #: [id number] Location: ER Room/Bed: Procedure: [id number] DX/CHEST SINGLE (PORTABLE) Exam Date: 10/31/19 Exam Time: 699 REPORT STATUS: Signed EXAMINATION: CHEST SINGLE (PORTABLE) INDICATION: [id number] COMPARISON: None available FINDINGS: AP view TUBES and PARVEZ ES: None. LUNGS: Lungs are well inflated. Mild central vascular congesti on. No definite focal consolidation. PLEURA: No pleural effusion or pneu mothorax. HEART AND MEDIASTINUM: The cardiomediastinal silhouette is unrem arkable. BONES AND SOFT TISSUES: No acute osseous lesion. Soft tissue s are unremarkable. UPPER ABDOMEN: No free air under the diaphragm. IMPRESSION: Mild central vascular congestion. No definite focal consoli dation. Signed by: Dr. Saeed Flor MD on 10/31/2019 7:21 AM Dic tated By: SAEED FLOR MD 0 COPY TO: JOSH HARDEN MD Prothrombin time (PT) in platelet poor plasma by coagulation assay 2019-10-31 06:00:00* Test Item Value Reference Range Interpretation Comments Prothrombin Time (test code = 5902-2) 12.2 11.9-14.5 [facility]IN[facility] Platelet poor plasma by Coagulation [id number] 06:00:00* Test Item Value Reference Range Interpretation Comments Prothromb Time International Ratio (test code = 6301-6) 0.87 Oral Anticoagulant Therapy INR Values:1. Low Intensity Therapy 1.5 - 2.02 . Moderate Intensity Therapy 2.0 - 3.03. High Intensity Therapy(1) 2.5 - 3. 54. High Intensity Therapy(2) 3.0 - 4.05. Panic Value INR > 5.0 [facility] HospitalActivated partial thromboplastin time (aPTT) in platelet poor plasma by coagulation [id number] 06:00:00* Test Item Value Reference Range Interpretation Comments Activated Partial Thromboplast Time (test code = 81404-8) 29.1 23.8-35.5 [facility] HospitalBNP [id number] 06:00:00* Test Item Value Reference Range Interpretation Comments B-Type Natriuretic Peptide (test code = 52323-6) 275.5 0-100 [facility] or plasma thyrotropin measurement by detection limit <= 0.005 miu/l (units/volume)2019-10-31 06:00:00* Test Item Value Reference Range Interpretation Comments Thyroid Stimulating Hormone (TSH) (test code = 78667-1) 1.887 0.350-4.940 [facility]
--- NOTE | 2019-12-27 19:46 | Diagnostic Imaging Report ---
EXAMINATION: Head CT without contrast. HISTORY:Weakness and fatigue. COMPARISON:Report of CT brain from 04/11/2015, prior images are not available for comparison at the time of interpretation. TECHNIQUE: Multidetector axial images were obtained from the foramen magnum to the vertex without contrast. The images were reconstructed using brain and bone algorithms. Thin section brain images were reformatted into coronal and sagittal planes. Dose modulation, iterative reconstruction, and/or weight based adjustment of the mA/kV was utilized to reduce the radiation dose to as low as reasonably achievable. Intravenous contrast: None IMAGE QUALITY: Acceptable. FINDINGS: Skull/scalp: No lytic or blastic. lesions. No surgical changes. Parenchyma: Nonspecific bilateral frontoparietal patchy white matter hypodensity are likely related to small vessel ischemic changes. No acute hemorrhage, mass or acute major vascular territorial infarct. Arteries: No density suggestive of thrombosis. Dural sinuses: No abnormal density suggestive of thrombosis. Ventricles: No hydrocephalus or displacement. Extra-axial spaces: No abnormal density. Brain volume: Generalized age-related cerebral volume loss. Craniocervical junction: No mass, Chiari malformation, or basilar invagination. Sella: No mass. Paranasal/mastoid sinuses: Mild mucosal thickening in bilateral ethmoid sinuses. IMPRESSION: No acute intracranial abnormality. Mild supratentorial white matter microvascular ischemic changes. Generalized age-related cerebral volume loss. Signed by: Dr. Paula Andrew M.D. on 12/27/2019 7:43 PM
[2019-12-27 19:52] LABS: CLARITY,URINE HAZY (CLEAR); COLOR,URINE YELLOW (YELLOW); LEUKOCYTE ESTERASE ,URINE MODERATE (NEGATIVE); NITRITE,URINE NEGATIVE (NEGATIVE); PROTEIN,URINE DIPSTICK NEGATIVE (NEGATIVE)
[2019-12-27 19:53] LABS: BILIRUBIN,URINE NEGATIVE (NEGATIVE); KETONES,URINE NEGATIVE (NEGATIVE); URINE UROBILINOGEN 0.2 mg/dL (0.2 - 1)
[2019-12-27 20:05] LABS: BACTERIA,URINE MANY /HPF
--- OUTSIDE RECORDS SUMMARY | 2019-12-27 20:23 | XMS REPORT | Continuity of Care Document ---
Author Author [facility] t Organization [facility] Address [address] [place] [address] Phone Unavailable Care Team Providers Care Type Photography Supervisor Name Role Phone MD VICKY LEE PCP Nicholas VELOZ Attphys Unavailable BURNS, SERA Attphys Unavailable BURNS, SERA Admphys Unavailable Payers Payer Name Policy Type Policy Number Effective Date Expiration Date Víctor vides [employer] [place] [employer] [facility] [id number] 2019 00:00:00 [facility] Cdc Review Covid19 [id number] [facility] Problems Condition Name Condition Details Condition Category Status Onset Date Resolution Date Last Treatment Date Treating Clinician Comments Source Altered mental state Problem Active 2015-04-12 00:00:00 [facility] Confusion Problem Active 2015-04-12 00:00:00 [facility] Fall Problem Active 2015-04-12 00:00:00 [facility] Contusion of face Problem Active 2015-04-12 00:00:00 [facility] Infectious diarrhea in adult patient Problem Active [facility] Proctitis Problem Active [facility] Chest pain Problem Active [facility] Atrial fibrillation with rapid ventricular response Problem Active [facility] Allergies, Adverse Reactions, Alerts Allergy Name Allergy Type Status Severity Reaction(s) Onset Date Inacti ve Date Treating Clinician Comments Source Codeine Propensity to adverse reactions Active Mild thro w up 2016-08-23 00:00:00 [facility] Social History Social Habit Start Date Stop Date Quantity Comments Source Sex Assigned At 1935 00:00:00 1935 00:00:00 Female [facility] Medications Ordered Medication Name Filled Medication Name Start Date Stop Da te Current Medication? Ordering Clinician Indication Dosage Frequency Signature (SIG) Comments Components Source Aspirin Aspirin 2015-11-23 12:58:00 Yes 81 Daily [facility] Diltiazem Hcl (Cardizem Cd*) 120 Mg CAP.ER.24H Diltiaz em Hcl (Cardizem Cd*) 120 Mg CAP.ER.24H 2015-11-23 12:58:00 Yes 120 Daily [facility] Potassium Chloride Potassium Chloride 2015-11-23 12:58:00 Yes 20 Daily [facility] Ferrous Sulfate Ferrous Sulfate Yes 1 Twice A Day [facility] Levothyroxine Sodium Levothyroxine Sodium Yes 50 Daily [facility] Lubiprostone (Amitiza) 24 Mcg CAPSULE Lubiprostone (Amitiza) 24 Mcg CAPSULE Yes 24 Daily [facility] Ondansetron (Zofran Odt) 4 Mg TAB.RAPDIS Ondansetron ( Zofran Odt) 4 Mg TAB.RAPDIS Yes 4 Twice A Day as needed for N ausea [facility] Oxybutynin Chloride Oxybutynin Chloride Yes 5 Daily [facility] Pantoprazole Sodium (Protonix) 40 Mg TABLET. Pantopr azole Sodium (Protonix) 40 Mg TABLET. Yes 40 Daily [facility] Triamterene/Hydrochlorothiazid (Dyazide 37.5-25 Capsul e) 1 Each CAPSULE Triamterene/Hydrochlorothiazid (Dyazide 37.5-25 Capsule) 1 Each CAPSULE Yes 1 Daily [facility] Zolpidem Tartrate (Ambien) 10 Mg TABLET Zolpidem Tartrate (A mbien) 10 Mg TABLET Yes 10 Bedtime as needed for Sleep [facility] Alprazolam (Xanax*) 1 Mg TABLET Alprazolam (Xanax*) 1 Mg TABLET 2019-11-01 00:00:00 No .5 Bedtime as needed for Sleep [facility] Furosemide Furosemide 2015-11-23 00:00:00 No 20 Twi ce A Day [facility] Naproxen Naproxen 2015-11-23 00:00:00 No [facility] Vital Signs Vital Name Observation Time Observation Value Comments Source Body Temperature 2019-12-14 20:33:00 99.5 [degF] [facility] BMI (Body Mass Index) 2019-12-10 13:30:00 23.6 kg/m2 [facility] Weight 2019-12-10 07:43:00 117 [lb_av] [facility] Body Temperature 2019-11-01 08:38:00 97.8 [degF] [facility] BMI (Body Mass Index) 2019-10-31 11:56:00 23.6 kg/m2 [facility] Weight 2019-10-31 06:43:00 117 [lb_av] [facility] Procedures Procedure Date / Time Performed Performing Clinician [facility] e Computed tomography of chest without contrast 2019-12-11 00:00:0 [address] [facility] [address] of abdomen and pelvis without contrast 2019-12-11 00:00:00 [facility] Computed tomography of chest with contrast 2019-10-31 00:00:00 [facility] Encounters Start Date/Time End Date/Time Encounter Type Admission Type [facility] Facility Care Department Encounter ID Source 2019-12-10 08:24:00 2019-12-14 22:13:00 Discharged Inpatient 1 [facility] [id number] [facility] 2019-10-31 07:24:00 2019-11-01 10:21:00 Discharged Inpatient (obs) 1 [facility] [id number] [facility] Results Test Description Test Time Test Comments Results Result Comments Source CT BRAIN WO 2019-12-27 19:38:00 [facility] [place] [address] Patient Name: MATT FLORES MR #: [id number] : 1935 Age/Sex: 84/[id number] Req #: [id number] [facility] Physician: Ordered by: ADIN VELOZ MD Report #: [id number] Location: ER Room/Bed: Procedure: [id number] CT/CT BRAIN WO Exam Date: 12/27/19 Exam Time: 1904 REPORT STATUS: Signed EXAMINATION: Head CT without contrast. HISTORY:Weakness and fatigue. COMPARISON:Report of CT brain from 04/11/2015, prior images are not available for comparison at the time of interpretation. TECHNIQUE: Multidetector axial images were obtained from the foramen magnum to the vertex without contrast. The images were reconstructed using brain and bone algorithms. Thin section brain images were reformatted into coronal and sagittal planes. Dose modulation, iterative reconstruction, and/or weight based adjustment of the mA/kV was utilized to reduce the radiation dose to as low as reasonably achievable. Intravenous contrast: None IMAGE QUALITY: Acceptable. FINDINGS: Skull/scalp: No lytic or blastic. lesions. No surgical changes. Parenchyma: Nonspecific bilateral frontoparietal patchy white matter hypoden sity are likely related to small vessel ischemic changes. No acute hemorrhage, mass or acute major vascular territorial infarct. Arteries: No density suggestive of thrombosis. Dural sinuses: No abnormal density suggestive of thrombosis. Ventricles: No hydrocephalus or displacement. Extra-axial spaces: No abnormal density. Brain volume: Generalized age- related cerebral volume loss. Craniocervical junction: No mass, Chiari malformation, or basilar invagination. Sella: No mass. Paranasal/mastoid sinuses: Mild mucosal thickening in bilateral ethmoid sinuses. IMPRESSION: No acute intracranial abnormality. Mild supratentorial white matter microvascular ischemic changes. Generalized age-related cerebral volume loss. Signed by: Dr. Paula Andrew M.D. on 12/27/2019 7:43 PM Dictated By: PAULA ANDREW MD 42 Transcribed By: FADI on 12/27/191942 COPY TO: ADIN VELOZ MD Blood leukocytes automated count (number/volume) 2019-12-14 04:37:00 Test Item White Blood Count (test code = 6690-2) 10.91 4.8-10.8 [facility] automated count (number/volume)2019-12-14 04:37:00* Test Item Value Reference Range Interpretation Comments Red Blood Count (test code = 789-8) 3.18 3.6-5.1 [facility] hemoglobin measurement (moles/volume)2019-12-14 04:37:00* Test Item Value Reference Range Interpretation Comments Hemoglobin (test code = 83265-1) 9.1 12.0-16.0 [facility] HospitalAutomated blood hematocrit (volume fraction)2019-12-14 04:37:00* Test Item Value Reference Range Interpretation Comments Hematocrit (test code = 4544-3) 28.8 34.2-44.1 [facility] HospitalAutomated erythrocyte mean corpuscular efizlb8825-63-82 04:37:00* Test Item Value Reference Range Interpretation Comments Mean Corpuscular Volume (test code = 787-2) 90.6 81-99 [facility] HospitalAutomated erythrocyte mean corpuscular hemoglobin (mass per erythrocyte)2019-12-14 04:37:00* Test Item Value Reference Range Interpretation Comments Mean Corpuscular Hemoglobin (test code = 785-6) 28.6 28-32 [facility] HospitalAutomated erythrocyte mean corpuscular hemoglobin concentration measurement (mass/volume)2019-12-14 04:37:00* Test Item Value Reference Range Interpretation Comments Mean Corpuscular Hemoglobin Concent (test code = 786-4) 31.6 31-35 [facility] HospitalRDW OueKn-Qzf7883-53-25 04:37:00* Test Item Value Reference Range Interpretation Comments Red Cell Distribution Width (test code = 99174-0) 13.1 11.7 -14.4 [facility] HospitalAutomated blood platelet count (count/volume)2019-12-14 04:37:00* Test Item Value Reference Range Interpretation Comments Platelet Count (test code = 777-3) 387 140-360 [facility] HospitalAutomated blood segmented neutrophil count as percentage of total euwkkcplmf7477-24-93 04:37:00* Test Item Value Reference Range Interpretation Comments Neutrophils (%) (Auto) (test code = 18721-5) 72.4 38.7-80.0 [facility] blood lymphocyte count as percentage ot total yqcncsympi1539-77-88 04:37:00* Test Item Value Reference Range Interpretation Comments Lymphocytes (%) (Auto) (test code = 736-9) 13.1 18.0-39.1 [facility] HospitalAutomated blood monocyte count as percentage of total zvlietttlq8094-21-83 04:37:00* Test Item Value Reference Range Interpretation Comments Monocytes (%) (Auto) (test code = 5905-5) 12.6 4.4-11.3 [facility] HospitalAutmission hospitaled blood eosinophil count as percentage of total jklbjcjhly4171-47-28 04:37:00* Test Item Value Reference Range Interpretation Comments Eosinophils (%) (Auto) (test code = 713-8) 0.8 0.0-6.0 [facility] HospitalAutomated blood basophil count as percentage of total xkdqakvnwk9598-34-92 04:37:00* Test Item Value Reference Range Interpretation Comments Basophils (%) (Auto) (test code = 706-2) 0.5 0.0-1.0 [facility] HospitalFluoroscopic procedure less than one hour sorbwpkm7668-58-39 04:37:00* Test Item Value Reference Range Interpretation Comments IM GRANULOCYTES % (test code = IM GRANULOCYTES %) 0.6 0.0- 1.0 [facility] HospitalAutomated blood neutrophil count 2019-12-14 04:37:00* Test Item Value Reference Range Interpretation Comments Neutrophils # (Auto) (test code = 751-8) 7.9 2.1-6.9 [facility] HospitalBlood lymphocytes count (number/volume) 2019-12-14 04:37:00* Test Item Value Reference Range Interpretation Comments Lymphocytes # (Auto) (test code = 48546-1) 1.4 1.0-3.2 [facility] HospitalBlood monocytes automated count (number/volume)2019-12-14 04:37:00* Test Item Value Reference Range Interpretation Comments Monocytes # (Auto) (test code = 742-7) 1.4 0.2-0.8 [facility] HospitalAutomated blood eosinophil count 2019-12-14 04:37:00* Test Item Value Reference Range Interpretation Comments Eosinophils # (Auto) (test code = 711-2) 0.1 0.0-0.4 [facility] HospitalAutomated blood basophil count (count/volume)2019-12-14 04:37:00* Test Item Value Reference Range Interpretation Comments Basophils # (Auto) (test code = 704-7) 0.1 0.0-0.1 [facility] HospitalFluoroscopic procedure less than one hour svpgbgns2828-59-40 04:37:00* Test Item Value Reference Range Interpretation Comments Absolute Immature Granulocyte (auto (yasmin t code = Absolute Immature Granulocyte (auto) 0.07 0-0.1 [facility] or plasma sodium measurement (moles/volume)2019-12-14 04:37:00* Test Item Value Reference Range Interpretation Comments Sodium Level (test code = 2951-2) 137 136-145 [facility] Resourceser[facility] or plasma potassium measurement (moles/volume)2019-12-14 04:37:00* Test Item Value Reference Range Interpretation Comments Potassium Level (test code = 2823-3) 3.7 3.5-5.1 [facility] or plasma chloride measurement (moles/volume)2019-12-14 04:37:00* Test Item Value Reference Range Interpretation Comments Chloride Level (test code = 2075-0) 105 98-107 [facility]er[facility] or plasma carbon dioxide, total measurement (moles/volume)2019-12-14 04:37:00* Test Item Value Reference Range Interpretation Comments Carbon Dioxide Level (test code = 2028-9) 21 22-29 [facility] or plasma anion jao4878-32-13 04:37:00* Test Item Value Reference Range Interpretation Comments Anion Gap (test code = 45288-2) 14.7 8-16 [facility] or plasma urea nitrogen measurement (mass/volume)2019-12-14 04:37:00* Test Item Value Reference Range Interpretation Comments Blood Urea Nitrogen (test code = 3094-0) 14 7-26 [facility] or plasma creatinine measurement (mass/volume)2019-12-14 04:37:00* Test Item Value Reference Range Interpretation Comments Creatinine (test code = 2160-0) 0.80 0.57-1.11 [facility] or plasma urea nitrogen/creatinine mass zkniu0828-43-95 04:37:00* Test Item Value Reference Range Interpretation Comments BUN/Creatinine Ratio (test code = 3097-3) 18 6- [facility] HospitalEstimated glomerular filtration rate (GFR) pmocpfiwfdmvi0825-20-88 04:37:00* Test Item Value Reference Range Interpretation Comments Estimat Glomerular Filtration Rate (test code = 348082982) > 60 >60 Ranges were taken from the National Kidney Disease Education Program and the [facility] [employer] literature.Reference ranges:60 or greater: Zpyvpq82-73 ( for 3 consecutive months): Chronic kidney disease 15 or less: Kidney failureTexas Children's HospitalGlucose khjskfyvcvg3655-68-19 04:37:00* Test Item Value Reference Range Interpretation Comments Glucose Level (test code = DBU4402) 73 74-118 [facility] or plasma calcium measurement (mass/volume)2019-12-14 04:37:00* Test Item Value Reference Range Interpretation Comments Calcium Level (test code = 97528-7) 8.0 8.4-10.2 [facility] HospitalCapillary blood glucose measurement by glucometer (mass/volume)2019-12-13 20:07:00* Test Item Value Reference Range Interpretation Comments Bedside Glucose (test code = 16854-7) 92 70-120 Meter ID: [id number] [facility] 12:34:00 [facility] [address] [place] [address] Patient Name: MATT FLORES MR #: [id number] : 1935 Age/Sex: 84/F Req #: [id number] Adm Physician: SERA BURNS MD Ordered by: SERA BURNS MD Report #: [id number] Location: [facility]/SURG2 Room/Bed: [facility] Procedure: [id number] CT/CT ABDOMEN/PELV IS WO Exam Date: 12/11/19 [...] related to subcutaneous injections. Signed by: Vipul Reyes MD on 12/10 12:48 PM Dictated By: VIPUL REYES MD 1248 Transcribed By: FADI on 12/11/19 1248 COPY TO: SERA BURNS MD CT CHEST [id number] 12:34:00 [place] [address] Patient Name: MATT FLORES MR #: [id number] : 1935 Age/Sex: 84/F Req #: [id number] Adm Physician: SERA BURNS MD Ordered by: SERA BURNS MD Report #: [id number] Location: MED/SURG2 Room/Bed: [facility] Procedure: [id number] CT/CT CHEST am Date: 12/11/19 Exam Time: 1100 REPORT [...] t o subcutaneous injections. Signed by: Vipul Reyes MD on 12/11/2019 12: 48 PM Dictated By: VIPUL REYES MD 1248 Transcribed By: FADI on 12/11/19 1248 COPY TO: SERA QUIROS MD Phosphorus ygsvbezwgif0140-41-70 04:50:00* Test Item Value Reference Range Interpretation Comments Phosphorus Level (test code = YTS6603) 3.4 2.3-4.7 [facility] or plasma magnesium measurement (mass/volume)2019-12-11 04:50:00* Test Item Value Reference Range Interpretation Comments Magnesium Level (test code = 84611-2) 2.1 1.3-2.1 [facility] or plasma total bilirubin measurement (mass/volume)2019-12-11 04:50:00* Test Item Value Reference Range Interpretation Comments Total Bilirubin (test code = 1975-2) 0.2 0.2-1.2 [facility] HospitalFluoroscopic procedure less than one hour wlvjdgrs8609-89-06 04:50:00* Test Item Value Reference Range Interpretation Comments Aspartate Amino Transf (AST/SGOT) (test code = Aspartate Amino Transf (AST/SGOT)) 27 5-34 [facility] or plasma alanine aminotransferase measurement (enzymatic activity/volume)2019-12-11 04:50:00* Test Item Value Reference Range Interpretation Comments Alanine Aminotransferase (ALT/SGPT) (test code = 1742-6) 14 0-55 [facility]er[facility] or plasma protein measurement (mass/volume)2019-12-11 04:50:00* Test Item Value Reference Range Interpretation Comments Total Protein (test code = 2885-2) 5.7 6.5-8.1 [facility] or plasma albumin measurement (mass/volume)2019-12-11 04:50:00* Test Item Value Reference Range Interpretation Comments Albumin (test code = 1751-7) 3.4 3.5-5.0 [facility] HospitalPlasma globulin measurement (mass/volume) 2019-12-11 04:50:00* Test Item Value Reference Range Interpretation Comments Globulin (test code = 13485-5) 2.3 2.3-3.5 [facility] or plasma albumin/globulin mass myvoz7328-73-59 04:50:00* Test Item Value Reference Range Interpretation Comments Albumin/Globulin Ratio (test code = 1759-0) 1.5 0.8-2.0 [facility] or plasma alkaline phosphatase measurement (enzymatic activity/volume)2019-12-11 04:50:00* Test Item Value Reference Range Interpretation Comments Alkaline Phosphatase (test code = 6768-6) 112 40-150 [facility] or plasma triglyceride measurement (mass/volume)2019-12-11 04:50:00* Test Item Value Reference Range Interpretation Comments Triglycerides Level (test code = 2571-8) 158 0-149 [facility] or plasma cholesterol measurement (mass/volume)2019-12-11 04:50:00* Test Item Value Reference Range Interpretation Comments Cholesterol Level (test code = 2093-3) 147 0-199 Less than 200 mg/dL Low Muqi118 - 239 mg/dL Borderline Ofkn682 m g/dl and greater High Risk [facility] or plasma cholesterol in LDL measurement (mass/volume) 2019-12-11 04:50:00* Test Item Value Reference Range Interpretation Comments LDL Cholesterol (test code = 2089-1) 66 60-130 [facility] or plasma cholesterol in HDL measurement (mass/volume)2019-12-11 04:50:00* Test Item Value Reference Range Interpretation Comments HDL Cholesterol (test code = 2085-9) 49 40-60 [facility] or plasma total cholesterol/cholesterol in HDL mass wqsem3927-71-44 04:50:00* Test Item Value Reference Range Interpretation Comments Cholesterol/HDL Ratio (test code = 9830-1) 3.0 3.0-3.6 [facility] or plasma creatine kinase measurement (enzymatic activity/volume)2019-12-11 04:50:00* Test Item Value Reference Range Interpretation Comments Creatine Kinase (test code = 2157-6) 33 29-168 [facility]er[facility] or plasma creatine kinase MB measurement (mass/volume)2019-12-11 04:50:00* Test Item Value Reference Range Interpretation Comments Creatine Kinase MB (test code = 40381-8) 1.50 0-5.0 [facility] HospitalTroponin I measurement by highly sensitive enzyme ldduvuyjbwt3944-68-36 04:50:00* Test Item Value Reference Range Interpretation Comments Troponin I (test code = 35893-2) 0.042 0-0.300 [facility] SINGLE (PORTABLE)2019-12-10 08:54:00 [facility] [address] [place] [address] Patient Name: MATT FLORES MR #: [id number] : 1935 Age/Sex: 84/F Req #: [id number] Adm Physician: SERA BURNS MD Ordered by: JOSH HARDEN MD Report #: [id number] Location: [facility] Room/Bed: [place] [address] Procedure: [id number] DX/CHEST SINGLE (PORTABLE) Exam Date: 12/10/19 Exam Time: 0754 REPORT STATUS: Signed EXAMINATION: CHEST SINGLE (PORTABLE) [...] or airspace edema. Signed b y: Vipul Reyes MD on 12/10/2019 8:56 AM Dictated By: VIPUL REYES MD Electr onically Signed By: VIPUL REYES MD on 12/10/19 0856 Transcribed By: FADI on 0 12/10/19 0856 COPY TO: JOSH HARDEN MD Prothrombin time (PT) in platelet poor plasma by coagulation xidgd8625-36-31 07:30:00* Test Item Value Reference Range Interpretation Comments Prothrombin Time (test code = 5902-2) 12.3 11.9-14.5 [facility] HospitalINR in Platelet poor plasma by Coagulation zcjax7549-65-36 07:30:00* Test Item Value Reference Range Interpretation Comments Prothromb Time International Ratio (test code = 6301-6) 0.87 Oral Anticoagulant Therapy INR Values:1. Low Intensity Therapy 1.5 - 2.02 . Moderate Intensity Therapy 2.0 - 3.03. High Intensity Therapy(1) 2.5 - 3. 54. High Intensity Therapy(2) 3.0 - 4.05. Panic Value INR > 5.0 [facility] HospitalActivated partial thromboplastin time (aPTT) in platelet poor plasma by coagulation cvwez3350-53-23 07:30:00* Test Item Value Reference Range Interpretation Comments Activated Partial Thromboplast Time (test code = 41727-6) 27.3 23.8-35.5 [facility] HospitalBNP Xzk-zNrn9826-14-21 07:30:00* Test Item Value Reference Range Interpretation Comments B-Type Natriuretic Peptide (test code = 46588-0) 379.6 0-100 [facility]er[facility] or plasma thyrotropin measurement by detection limit <= 0.005 miu/l (units/volume)2019-12-10 07:30:00* Test Item Value Reference Range Interpretation Comments Thyroid Stimulating Hormone (TSH) (test code = 86324-0) 2.043 0.350-4.940 [facility] HospitalFluoroscopic procedure less than one hour dvxagzzv1396-22-58 07:30:00* Test Item Value Reference Range Interpretation Comments Coronavirus (PCR) (test code = Coronavirus (PCR)) NOT DETECTED NOTD ETECTED SARS-CoV-2 PCRHologic Aptima SARS-CoV-2 assay is a nucleic amplification test in tended for the qualitative detection of RNA from SARS-CoV-2 from nasopharyngeal ([employer]) specimens. It is used under Emergency Use [...] repr at testing oc clinically indicated.Tesing performed by:[facility] [place] [address] [id number], Adin trimble MD, PhDTexas Children's HospitalBlnew prague hospital leukocytes automated count (number/volume)2019-11-01 05:00:00* Test Item Value Reference Range Interpretation Comments White Blood Count (test code = 6690-2) 6.27 4.8-10.8 [facility] HospitalBlnew [facility] hospital erythrocytes automated count (number/volume)2019-11-01 05:00:00* Test Item Value Reference Range Interpretation Comments Red Blood Count (test code = 789-8) 3.16 3.6-5.1 [facility] HospitalBlood hemoglobin measurement (moles/volume)2019-11-01 05:00:00* Test Item Value Reference Range Interpretation Comments Hemoglobin (test code = 36197-2) 9.6 12.0-16.0 [facility] HospitalAutomated blood hematocrit (volume fraction)2019-11-01 05:00:00* Test Item Value Reference Range Interpretation Comments Hematocrit (test code = 4544-3) 30.2 34.2-44.1 [facility] HospitalAutomated erythrocyte mean corpuscular inwumn0067-61-60 05:00:00* Test Item Value Reference Range Interpretation Comments Mean Corpuscular Volume (test code = 787-2) 95.6 81-99 [facility] HospitalAutomated erythrocyte mean corpuscular hemoglobin (mass per erythrocyte)2019-11-01 05:00:00* Test Item Value Reference Range Interpretation Comments Mean Corpuscular Hemoglobin (test code = 785-6) 30.4 28-32 [facility] HospitalAutomated erythrocyte mean corpuscular hemoglobin concentration measurement (mass/volume)2019-11-01 05:00:00* Test Item Value Reference Range Interpretation Comments Mean Corpuscular Hemoglobin Concent (test code = 786-4) 31.8 31-35 [facility] HospitalRDW TxbMh-Gne7063-71-13 05:00:00* Test Item Value Reference Range Interpretation Comments Red Cell Distribution Width (test code = 70787-8) 13.9 11.7 -14.4 [facility] HospitalAutomated blood platelet count (count/volume)2019-11-01 05:00:00* Test Item Value Reference Range Interpretation Comments Platelet Count (test code = 777-3) 295 140-360 [facility] HospitalAutomated blood segmented neutrophil count as percentage of total exkodzdwgn6214-88-16 05:00:00* Test Item Value Reference Range Interpretation Comments Neutrophils (%) (Auto) (test code = 20191-6) 56.2 38.7-80.0 [facility] HospitalAutomated blood lymphocyte count as percentage ot total jukfupzakk3608-02-17 05:00:00* Test Item Value Reference Range Interpretation Comments Lymphocytes (%) (Auto) (test code = 736-9) 27.9 18.0-39.1 [facility] HospitalAutomated blood monocyte count as percentage of total fokqfdlwgx5077-63-79 05:00:00* Test Item Value Reference Range Interpretation Comments Monocytes (%) (Auto) (test code = 5905-5) 12.3 4.4-11.3 [facility] HospitalAutomated blood eosinophil count as percentage of total axrvjcqpbc7572-61-77 05:00:00* Test Item Value Reference Range Interpretation Comments Eosinophils (%) (Auto) (test code = 713-8) 2.1 0.0-6.0 [facility] HospitalAutomated blood basophil count as percentage of total pbyaxqpney9153-21-43 05:00:00* Test Item Value Reference Range Interpretation Comments Basophils (%) (Auto) (test code = 706-2) 1.0 0.0-1.0 [facility] HospitalFluoroscopic procedure less than one hour iblwopli1935-49-93 05:00:00* Test Item Value Reference Range Interpretation Comments IM GRANULOCYTES % (test code = IM GRANULOCYTES %) 0.5 0.0- 1.0 [facility] HospitalAutomated blood neutrophil count 2019-11-01 05:00:00* Test Item Value Reference Range Interpretation Comments Neutrophils # (Auto) (test code = 751-8) 3.5 2.1-6.9 [facility] HospitalBlood lymphocytes count (number/volume) 2019-11-01 05:00:00* Test Item Value Reference Range Interpretation Comments Lymphocytes # (Auto) (test code = 81554-5) 1.8 1.0-3.2 [facility] HospitalBl[facility] monocytes automated count (number/volume)2019-11-01 05:00:00* Test Item Value Reference Range Interpretation Comments Monocytes # (Auto) (test code = 742-7) 0.8 0.2-0.8 [facility] HospitalAutomated blood eosinophil count 2019-11-01 05:00:00* Test Item Value Reference Range Interpretation Comments Eosinophils # (Auto) (test code = 711-2) 0.1 0.0-0.4 [facility] HospitalAutomated blood basophil count (count/volume)2019-11-01 05:00:00* Test Item Value Reference Range Interpretation Comments Basophils # (Auto) (test code = 704-7) 0.1 0.0-0.1 [facility] HospitalFluoroscopic procedure less than one hour emqgjpii3083-28-07 05:00:00* Test Item Value Reference Range Interpretation Comments Absolute Immature Granulocyte (auto (yasmin t code = Absolute Immature Granulocyte (auto) 0.03 0-0.1 [facility] Resourceserum or plasma sodium measurement (moles/volume)2019-11-01 05:00:00* Test Item Value Reference Range Interpretation Comments Sodium Level (test code = 2951-2) 139 136-145 [facility] Resourceserum or plasma potassium measurement (moles/volume)2019-11-01 05:00:00* Test Item Value Reference Range Interpretation Comments Potassium Level (test code = 2823-3) 4.0 3.5-5.1 [facility] Resourceserum or plasma chloride measurement (moles/volume)2019-11-01 05:00:00* Test Item Value Reference Range Interpretation Comments Chloride Level (test code = 2075-0) 111 98-107 [facility] Resourceserum or plasma carbon dioxide, total measurement (moles/volume)2019-11-01 05:00:00* Test Item Value Reference Range Interpretation Comments Carbon Dioxide Level (test code = 2028-9) 21 22-29 [facility] Resourceserum or plasma anion twl1706-95-04 05:00:00* Test Item Value Reference Range Interpretation Comments Anion Gap (test code = 20432-6) 11.0 8-16 [facility] Resourceserum or plasma urea nitrogen measurement (mass/volume)2019-11-01 05:00:00* Test Item Value Reference Range Interpretation Comments Blood Urea Nitrogen (test code = 3094-0) 13 7-26 [facility] Resourceserum or plasma creatinine measurement (mass/volume)2019-11-01 05:00:00* Test Item Value Reference Range Interpretation Comments Creatinine (test code = 2160-0) 0.80 0.57-1.11 [facility] Resourceserum or plasma urea nitrogen/creatinine mass kzlmr7956-89-44 05:00:00* Test Item Value Reference Range Interpretation Comments BUN/Creatinine Ratio (test code = 3097-3) 16 6-25 [facility] HospitalEstimated glomerular filtration rate (GFR) qypozhockjqqs8687-32-33 05:00:00* Test Item Value Reference Range Interpretation Comments Estimat Glomerular Filtration Rate (test code = 926859875) > 60 >60 Ranges were taken from the National Kidney Disease Education Program and the [facility] [employer] literature.Reference ranges:60 or greater: Gbhceg43-02 ( for 3 consecutive months): Chronic kidney disease 15 or less: Kidney failureTexas Children's HospitalGlucose xjgujmfhszv6305-15-22 05:00:00* Test Item Value Reference Range Interpretation Comments Glucose Level (test code = OMU3980) 85 74-118 [facility] Resourceserum or plasma calcium measurement (mass/volume)2019-11-01 05:00:00* Test Item Value Reference Range Interpretation Comments Calcium Level (test code = 58485-0) 8.3 8.4-10.2 [facility] Resourceserum or plasma total bilirubin measurement (mass/volume)2019-11-01 05:00:00* Test Item Value Reference Range Interpretation Comments Total Bilirubin (test code = 1975-2) 0.2 0.2-1.2 [facility] HospitalFluoroscopic procedure less than one hour fiehedcp3158-69-72 05:00:00* Test Item Value Reference Range Interpretation Comments Aspartate Amino Transf (AST/SGOT) (test code = Aspartate Amino Transf (AST/SGOT)) 16 5-34 [facility] Resourceserum or plasma alanine aminotransferase measurement (enzymatic activity/volume)2019-11-01 05:00:00* Test Item Value Reference Range Interpretation Comments Alanine Aminotransferase (ALT/SGPT) (test code = 1742-6) 9 0-55 [facility] Resourceserum or plasma protein measurement (mass/volume)2019-11-01 05:00:00* Test Item Value Reference Range Interpretation Comments Total Protein (test code = 2885-2) 5.2 6.5-8.1 [facility] Resourceserum or plasma albumin measurement (mass/volume)2019-11-01 05:00:00* Test Item Value Reference Range Interpretation Comments Albumin (test code = 1751-7) 2.6 3.5-5.0 [facility] HospitalPlasma globulin measurement (mass/volume) 2019-11-01 05:00:00* Test Item Value Reference Range Interpretation Comments Globulin (test code = 74663-1) 2.6 2.3-3.5 [facility] Resourceserum or plasma albumin/globulin mass muopr7258-56-48 05:00:00* Test Item Value Reference Range Interpretation Comments Albumin/Globulin Ratio (test code = 1759-0) 1.0 0.8-2.0 [facility] Resourceserum or plasma alkaline phosphatase measurement (enzymatic activity/volume)2019-11-01 05:00:00* Test Item Value Reference Range Interpretation Comments Alkaline Phosphatase (test code = 6768-6) 88 40-150 [facility] Resourceserum or plasma triglyceride measurement (mass/volume)2019-11-01 05:00:00* Test Item Value Reference Range Interpretation Comments Triglycerides Level (test code = 2571-8) 151 0-149 [facility] Resourceserum or plasma cholesterol measurement (mass/volume)2019-11-01 05:00:00* Test Item Value Reference Range Interpretation Comments Cholesterol Level (test code = 2093-3) 145 0-199 Less than 200 mg/dL Low Vmpq818 - 239 mg/dL Borderline Pnjs398 m g/dl and greater High Risk [facility] Resourceserum or plasma cholesterol in LDL measurement (mass/volume) 2019-11-01 05:00:00* Test Item Value Reference Range Interpretation Comments LDL Cholesterol (test code = 2089-1) 72 60-130 [facility] Resourceserum or plasma cholesterol in HDL measurement (mass/volume)2019-11-01 05:00:00* Test Item Value Reference Range Interpretation Comments HDL Cholesterol (test code = 2085-9) 43 40-60 [facility] Resourceserum or plasma total cholesterol/cholesterol in HDL mass jwiem3603-01-36 05:00:00* Test Item Value Reference Range Interpretation Comments Cholesterol/HDL Ratio (test code = 9830-1) 3.4 3.0-3.6 [facility] Resourceserum or plasma creatine kinase measurement (enzymatic activity/volume)2019-10-31 18:46:00* Test Item Value Reference Range Interpretation Comments Creatine Kinase (test code = 2157-6) 39 29-168 [facility] Resourceserum or plasma creatine kinase MB measurement (mass/volume)2019-10-31 18:46:00* Test Item Value Reference Range Interpretation Comments Creatine Kinase MB (test code = 45541-7) 1.40 0-5.0 [facility] HospitalTroponin I measurement by highly sensitive enzyme vphrphwedwy0440-15-55 18:46:00* Test Item Value Reference Range Interpretation Comments Troponin I (test code = 30652-1) 0.013 0-0.300 [facility] HospitalCT CHEST E2450-52-22 11:44:00 [facility] [address] [address] Patient Name: MATT FLORES MR #: [id number] : 1935 Age/Sex: 84/F Req #: [id number] Adm Physician: SERA BURNS MD Ordered by: SERA BURNS MD Report #: [id number] Location: MED/SURG Room/Bed: [facility] Procedure: [id number] CT/CT CHEST W Brittani hahn Date: 10/31/19 Exam Time: 1115 REPORT STATUS: Signed EXAM: CT Chest WITH intravenou s contrast 10/31/2019 11:26 AM INDICATION: Chest pain COMPARISON: Chest radi ograph of earlier the same day TECHNIQUE: Chest was scanned utilizing a [employer] helical scanner from the lung apex through [...] pneumonia. No pulmonary embolism. 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 Y TO: SERA BURNS MD Urine color vcbgulzpjwwwt8245-12-66 08:37:00* Test Item Value Reference Range Interpretation Comments Urine Color (test code = 5778-6) YELLOW YELLOW [facility] HospitalUrine obxepyn3307-91-59 08:37:00* Test Item Value Reference Range Interpretation Comments Urine Clarity (test code = 11651-0) CLEAR CLEAR [facility] Resourcespecific gravity of Urine by Test strip 2019-10-31 08:37:00* Test Item Value Reference Range Interpretation Comments Urine Specific [place] (test code = 5811-5) 1.025 1.010-1.02 5 [facility] HospitalUrine pH measurement by automated test jabpn1101-51-93 08:37:00* Test Item Value Reference Range Interpretation Comments Urine pH (test code = 04152-6) 5.5 5-7 [facility] HospitalUrine leukocyte esterase detection by crhqcnkv1397-33-30 08:37:00* Test Item Value Reference Range Interpretation Comments Urine Leukocyte Esterase (test code = 5799-2) SMALL NEGATIVE [facility] HospitalUrine nitrite hqekgntxl0716-40-08 08:37:00* Test Item Value Reference Range Interpretation Comments Urine Nitrite (test code = 16475-3) POSITIVE NEGATIVE [facility] HospitalUrine protein measurement by test strip (mass/volume)2019-10-31 08:37:00* Test Item Value Reference Range Interpretation Comments Urine Protein (test code = 5804-0) NEGATIVE NEGATIVE [facility] HospitalUrine glucose yoqnqejzd1743-97-10 08:37:00* Test Item Value Reference Range Interpretation Comments Urine Glucose (UA) (test code = 2349-9) NEGATIVE NEGATIVE [facility] HospitalUrine ketones detection by automated test iyogc1670-87-97 08:37:00* Test Item Value Reference Range Interpretation Comments Urine Ketones (test code = 11289-4) NEGATIVE NEGATIVE [facility] HospitalUrine urobilinogen measurement by test strip (mass/volume)2019-10-31 08:37:00* Test Item Value Reference Range Interpretation Comments Urine Urobilinogen (test code = 73180-5) 0.2 0.2-1 [facility] HospitalUrine total bilirubin measurement (mass/volume)2019-10-31 08:37:00* Test Item Value Reference Range Interpretation Comments Urine Bilirubin (test code = 1978-6) NEGATIVE NEGATIVE [facility] HospitalUrine erythrocytes ngvlnozxe8122-37-48 08:37:00* Test Item Value Reference Range Interpretation Comments Urine Blood (test code = 95792-9) TRACE NEGATIVE [facility] HospitalAutomated urine sediment leukocyte count by microscopy (number/high power field)2019-10-31 08:37:00* Test Item Value Reference Range Interpretation Comments Urine WBC (test code = 5821-4) 21-50 0-5 [facility] HospitalErythrocytes detection in urine sediment by light puctduxlpd6151-36-20 08:37:00* Test Item Value Reference Range Interpretation Comments Urine RBC (test code = 67206-3) 0-5 0-5 [facility] HospitalBacteria detection in urine sediment by light jywdhavozl6340-93-09 08:37:00* Test Item Value Reference Range Interpretation Comments Urine Bacteria (test code = 29574-8) MANY NONE [facility] HospitalEpithelial cells detection in urine sediment by light iwcsipiqww4914-48-40 08:37:00* Test Item Value Reference Range Interpretation Comments Urine Epithelial Cells (test code = 93890-7) FEW NONE [facility] HospitalTransitional cells detection in urine sediment by light svmktsywkt6300-40-65 08:37:00* Test Item Value Reference Range Interpretation Comments Urine Transitional Epithelial Cells (test code = 8249-5) FEW NONE [facility] HospitalBacterial urine eoikakh3527-58-17 08:37:00* Test Item Value Reference Range Interpretation Comments Urine Culture (test code = 630-4) GRAM NEGATIVE BACILLUS [facility] HospitalUrine color gnmfuphflxegi9333-15-02 08:37:00* Test Item Value Reference Range Interpretation Comments Urine Color (test code = 5778-6) YELLOW YELLOW [facility] HospitalUrine fzdmbgr8261-98-46 08:37:00* Test Item Value Reference Range Interpretation Comments Urine Clarity (test code = 97160-5) CLEAR CLEAR [facility] Resourcespecific gravity of Urine by Test strip 2019-10-31 08:37:00* Test Item Value Reference Range Interpretation Comments Urine Specific [place]cher (test code = 5811-5) 1.025 1.010-1.02 5 [facility] HospitalUrine pH measurement by automated test ryfih1511-32-19 08:37:00* Test Item Value Reference Range Interpretation Comments Urine pH (test code = 80879-7) 5.5 5-7 [facility] HospitalUrine leukocyte esterase detection by nargoxlu8868-84-23 08:37:00* Test Item Value Reference Range Interpretation Comments Urine Leukocyte Esterase (test code = 5799-2) SMALL NEGATIVE [facility] HospitalUrine nitrite rknjvrqud2687-19-24 08:37:00* Test Item Value Reference Range Interpretation Comments Urine Nitrite (test code = 11584-6) POSITIVE NEGATIVE [facility] HospitalUrine protein measurement by test strip (mass/volume)2019-10-31 08:37:00* Test Item Value Reference Range Interpretation Comments Urine Protein (test code = 5804-0) NEGATIVE NEGATIVE [facility] HospitalUrine glucose mkqvezmpf0209-31-14 08:37:00* Test Item Value Reference Range Interpretation Comments Urine Glucose (UA) (test code = 2349-9) NEGATIVE NEGATIVE [facility] HospitalUrine ketones detection by automated test yczfw3290-40-74 08:37:00* Test Item Value Reference Range Interpretation Comments Urine Ketones (test code = 62700-8) NEGATIVE NEGATIVE [facility] HospitalUrine urobilinogen measurement by test strip (mass/volume)2019-10-31 08:37:00* Test Item Value Reference Range Interpretation Comments Urine Urobilinogen (test code = 58861-7) 0.2 0.2-1 [facility] HospitalUrine total bilirubin measurement (mass/volume)2019-10-31 08:37:00* Test Item Value Reference Range Interpretation Comments Urine Bilirubin (test code = 1978-6) NEGATIVE NEGATIVE [facility] HospitalUrine erythrocytes fxbrgtxky9869-55-59 08:37:00* Test Item Value Reference Range Interpretation Comments Urine Blood (test code = 65050-2) TRACE NEGATIVE [facility] HospitalAutomated urine sediment leukocyte count by microscopy (number/high power field)2019-10-31 08:37:00* Test Item Value Reference Range Interpretation Comments Urine WBC (test code = 5821-4) 21-50 0-5 [facility] HospitalErythrocytes detection in urine sediment by light fyepppnqlt3449-21-53 08:37:00* Test Item Value Reference Range Interpretation Comments Urine RBC (test code = 53857-6) 0-5 0-5 [facility] HospitalBacteria detection in urine sediment by light qsumeahbmv5009-50-70 08:37:00* Test Item Value Reference Range Interpretation Comments Urine Bacteria (test code = 75591-8) MANY NONE [facility] HospitalEpithelial cells detection in urine sediment by light gqmpavvhuo8539-74-72 08:37:00* Test Item Value Reference Range Interpretation Comments Urine Epithelial Cells (test code = 05508-6) FEW NONE [facility] HospitalTransitional cells detection in urine sediment by light zsjxmxkooc1132-61-80 08:37:00* Test Item Value Reference Range Interpretation Comments Urine Transitional Epithelial Cells (test code = 8249-5) FEW NONE [facility] HospitalBacterial urine acxwnrk8881-15-41 08:37:00* Test Item Value Reference Range Interpretation Comments Urine Culture (test code = 630-4) ENTEROBACTER AEROGENES [facility] HospitalCHEST SINGLE (PORTABLE)2019-10-31 07:20:00 [facility] [address] [place] [address] Patient Name: MATT FLORES MR #: [id number] : 1935 Age/Sex: 84/F Req #: [id number] Adm Physician: Ordered by: JOSH HARDEN MD Report #: [id number] Location: ER Room/Bed: Procedure: [id number] DX/CHEST SINGLE (PORTABLE) Exam Date: 10/31/19 Exam [...] Time (test code = 5902-2) 12.2 11.9-14.5 [facility] HospitalINR in Platelet poor plasma by Coagulation lcwnq8114-89-47 06:00:00* Test Item Value Reference Range Interpretation Comments Prothromb Time International Ratio (test code = 6301-6) 0.87 Oral Anticoagulant Therapy INR Values:1. Low Intensity Therapy 1.5 - 2.02 . Moderate Intensity Therapy 2.0 - 3.03. High Intensity Therapy(1) 2.5 - 3. 54. High Intensity Therapy(2) 3.0 - 4.05. Panic Value INR > 5.0 [facility] HospitalActivated partial thromboplastin time (aPTT) in platelet poor plasma by coagulation giyin8231-30-17 06:00:00* Test Item Value Reference Range Interpretation Comments Activated Partial Thromboplast Time (test code = 00469-0) 29.1 23.8-35.5 [facility] Cuv-jCnm6689-70-12 06:00:00* Test Item Value Reference Range Interpretation Comments B-Type Natriuretic Peptide (test code = 67358-1) 275.5 0-100 [facility] Resourceserum or plasma thyrotropin measurement by detection limit <= 0.005 miu/l (units/volume)2019-10-31 06:00:00* Test Item Value Reference Range Interpretation Comments Thyroid Stimulating Hormone (TSH) (test code = 07058-6) 1.887 0.350-4.940 [facility]
[2019-12-27] MEDS ORDERED: ONDANSETRON HCL INJ 2MG/ML 2ML 2 MG/ML VIAL IV PRN (20:30)
[2019-12-27] MEDS ORDERED: SODIUM CHLORIDE FLUSH 10 ML SYR INJ PRN (20:30)
[2019-12-27] MEDS ORDERED: CEFTRIAXONE SOD 1 GM/NS 50 ML 50 ML IV SCH (20:30)
--- NOTE | 2019-12-27 22:40 | NUR ---
PATIENT ARRIVED TO THE FLOOR AOX4, VIA WHEELCHAIR, ADMISSION PROCESS COMPLETED PER PROTOCOL, ORIENTED TO ROOM, CALL LIGHT AND STAFF, GIVEN VERBAL AND DEMONSTRATION HOW TO USE CALL LIGHT TO CALL FOR ASSISTANCE PRIOR TO GETTING OOB, PT ACKNOWLEDGE UNDERSTANDING WITH VERBAL ACKNOWLEDGEMENT AND DEMONSTRATION, BED ALARM ACTIVATED IV SITE PATENT FLUSHES WELL, SKIN INTACT DRSG DRY
[2019-12-27 22:54] VITALS: BP 123/58
[2019-12-27 23:19] VITALS: BP 123/58
--- NOTE | 2019-12-27 23:29 | NUR ---
MD BURNS MADE AWARE THAT PATIENT IS C/O SLEEPLESSNESS, NO ORDERS GIVEN, PER MD BURNS PATIENT HR TO LOW, NO HOME MEDS TO BE RESUMED AT THIS TIME
[2019-12-27 23:31] VITALS: BP 123/58
[2019-12-28] VITALS (8 sets, daily range): BP systolic 106–127; BP diastolic 52–63
[2019-12-28 05:48] LABS: BASOPHILS # (AUTO) 0.1 (0.0-0.1); BASOPHILS % 0.9 % (0.0-1.0); EOSINOPHILS # (AUTO) 0.1 (0.0-0.4); EOSINOPHILS % 1.2 % (0.0-6.0); HEMATOCRIT 30.6 % (34.2-44.1); HEMOGLOBIN 9.7 g/dL (12.0-16.0); LYMPHOCYTES # (AUTO) 2.3 (1.0-3.2); LYMPHOCYTES % 28.4 % (18.0-39.1); MEAN CORPUSCULAR HEMOGLOBIN 29.3 pg (28-32); MEAN CORPUSCULAR HGB CONC 31.7 g/dL (31-35); MEAN CORPUSCULAR VOLUME 92.4 fL (81-99); MONOCYTES # (AUTO) 0.8 (0.2-0.8); MONOCYTES % 9.6 % (4.4-11.3); NEUTROPHILS # (AUTO) 4.8 (2.1-6.9); NEUTROPHILS % 59.5 % (38.7-80.0); PLATELET COUNT 398 x10e3/uL (140-360); RED BLOOD COUNT 3.31 x10e6/uL (3.6-5.1); RED CELL DISTRIBUTION WIDTH 14.1 % (11.7-14.4)
[2019-12-28 06:08] LABS: ALBUMIN 2.9 g/dL (3.5-5.0); ALBUMIN/GLOBULIN RATIO 1.1 (0.8-2.0); ANION GAP 14.6 mmol/L (8-16); CALCIUM 8.1 mg/dL (8.4-10.2); CREATININE, SERUM 1.12 mg/dL (0.57-1.11); POTASSIUM 4.6 mmol/L (3.5-5.1)
--- NOTE | 2019-12-28 07:34 | NUR ---
SBAR BEDSIDE SHIFT REPORT GIVEN AT BEDSIDE, PATIENT AOX3, REMAINS BRADYCARDIC, TELEMETRY IN PLACE FOR SAFETY, NO DISTRESS NOTED, DENIES PAIN OR DISCOMFORT, EDUCATION GIVEN DURING SHIFT CHANGE TO CALL FOR ASSISTANCE WITH TOILETING, BED ALARM IN PLACE, CALL LIGHT WITHIN REACH
[2019-12-28] MEDS: LUBIPROSTONE 24 MCG CAP PO SCH (09:27)
[2019-12-28] MEDS: LEVOTHYROXINE SODIUM 50 MCG TAB PO SCH (09:28)
[2019-12-28] MEDS: PANTOPRAZOLE SOD 40 MG TABEC PO SCH (09:28)
[2019-12-28] MEDS: OXYBUTYNIN CHLORIDE 5 MG TAB PO SCH (09:28)
--- NOTE | 2019-12-28 10:00 | History and Physical ---
The patient placed on observation on December 28, 2019. PRIMARY CARE PHYSICIAN: Geoffrey Grant MD CHIEF COMPLAINT: Generalized weakness with bradycardia, heart rate in the 40s. HISTORY: The patient is an 84-year-old female with recent cardiac catheterization, there was completely normal coronaries without any significant blockage. However, the patient did have atrial fibrillation. She was given metoprolol, amiodarone, and Eliquis to go home and instruction was for the patient to stop the diltiazem. The patient, however, came in with heart rate in the 40. Her heart rate now is 53. She was on hold with her heart rate medication including both diltiazem and metoprolol along with amiodarone as well. The patient is otherwise stable. She is comfortable. Hemoglobin and hematocrit are 11.3 and 36.4. The patient had no chest pain or shortness of breath. PAST MEDICAL HISTORY: Including atrial fibrillation with rapid ventricular rate or response. Hypertension. Recent coronary left heart catheterization that was otherwise unremarkable. Reflux history. Hypothyroidism. Chronic anemia. Chronic renal insufficiency. PAST SURGICAL HISTORY: She had four lower back surgeries, she had , cholecystectomy, and appendectomy. SOCIAL HISTORY: The patient does not smoke or use alcohol. No recreational drug use. ALLERGIES: TO CODEINE. PHYSICAL EXAMINATION: VITAL SIGNS: Temperature is 98, blood pressure 109/62, pulse rate on admission was 48, now heart rate is 58. Respirations 18. GENERAL: The patient is not in acute distress. She is awake. HEENT: Normocephalic, atraumatic. She is anicteric. NECK: Supple grossly. PULMONARY: Diminished breath sounds without any wheezing or rales. CARDIOVASCULAR: Bradycardia with atrial fibrillation. ABDOMEN: Soft and unremarkable. EXTREMITIES: No cyanosis or edema. NEUROLOGIC: No gross focal deficit. LABORATORY DATA: Sodium is 136, potassium 5.1, chloride 103, bicarb 20, BUN 20 and creatinine 1.3, glucose is 82. CK level is 32, troponin I negative. Urinalysis, many bacteria with wbc's of 10, moderate leukocyte esterase. WBC is 10.2, hemoglobin 11.3, hematocrit 36.4, and platelet is 434. Chest x-ray otherwise unremarkable. CT of the brain otherwise unremarkable. IMPRESSION: 1. Bradycardia, most likely contributing to the patient's fatigueness. The patient may be taking both diltiazem and metoprolol along with amiodarone. Will need to clarify the medication at home with family. 2. Mild urinary tract infection. We will treat. 3. Mild anemia. PLAN: Continue with Rocephin. Resume some home medication. We will hold off any rate control and blood pressure medication for now. We will monitor the patient closely. The patient may or may not need beta-lidia or diltiazem or amiodarone depending on further heart rate. We will continue to monitor the patient on telemetry. We will follow up on the patient's status. MD CHINYERE Pyle/TOM /[id number]
--- NOTE | 2019-12-28 13:56 | NUR ---
OBS DAY 1. SENT TO R1 FOR LOC DETERMINATION.
[2019-12-28 14:20] LABS: CREATINE KINASE MB 0.8 ng/mL (0-5.0)
--- NOTE | 2019-12-28 16:07 | NUR ---
[facility] case account ending in [id number] has been reviewed and completed by PAS Physicians. Service Line: Level of Care (LOC) / Admission Status Review Initial patient type was submitted as: IO - Initial Observation PAS Recommendation: OU
[2019-12-28] MEDS: ONDANSETRON HCL 4 MG ORAL DISINTEGRATING TAB PO PRN (20:26)
[2019-12-28] MEDS ORDERED: CEFTRIAXONE SOD 1 GM/NS 50 ML 50 ML IV SCH (20:30)
[2019-12-28] MEDS ORDERED: SODIUM CHLORIDE 0.9% 250ML 250 ML ONE (20:32)
[2019-12-29 00:36] VITALS: BP 115/52
[2019-12-29 04:54] VITALS: BP 140/68
[2019-12-29] MEDS: LEVOTHYROXINE SODIUM 50 MCG TAB PO SCH (05:07)
--- NOTE | 2019-12-29 06:57 | NUR ---
[facility] BEDSIDE REPORT RECEIVED FROM PM SHIFT RN. PATIENT FOUND LYING IN BED IN NO ACUTE DISTRESS. PATIENT IS AAOX4 AND DENIES ANY FURTHER NEEDS. PATIENT WAS EDUCATED ON FALL RISK PRECAUTIONS AND VERBALIZED UNDERSTANDING. CALL LIGHT AND BELONGINGS PLACED NEARBY. PATIENT AWARE OF HOURLY ROUNDS. I WILL CONTINUE TO MONITOR.
[2019-12-29] MEDS: ONDANSETRON HCL 4 MG ORAL DISINTEGRATING TAB PO PRN (07:45)
[2019-12-29 08:00] VITALS: BP 146/60
[2019-12-29 09:00] VITALS: BP 146/60
[2019-12-29] MEDS: LUBIPROSTONE 24 MCG CAP PO SCH (09:00)
[2019-12-29] MEDS: PANTOPRAZOLE SOD 40 MG TABEC PO SCH (09:27)
[2019-12-29] MEDS: OXYBUTYNIN CHLORIDE 5 MG TAB PO SCH (09:27)
--- NOTE | 2019-12-29 10:03 | NUR ---
CALL PLACED TO KADEEM CALLEMARILYNChip, PATIENT'S DAUGHTER. NO ANSWER, LEFT REGARDING HOME MEDICATION RECONCILIATION
--- NOTE | 2019-12-29 10:29 | NUR ---
I SPOKE WITH THE PATIENT'S DAUGHTER, KADEEM FLORES ([phone]) WHO STATES THE PATIENT DID TAKE CARDIZEM WHICH WAS PREFILLED IN A PILL JUNIOR PROGRAMMER FOR 2 WEEKS POST HEART CATH IN ADDITION TO AMIODARONE, METOPROLOL, AND ELIQUIS. KADEEM STATES THEY REALIZED THEY MADE A "HORRIBLE MISTAKE" AFTER THE PATIENT TOOK THE MEDICATION. DR. BURNS MADE AWARE.
[2019-12-29] MEDS ORDERED: HYDRALAZINE HCL 25 MG TAB PO PRN (10:45)
[2019-12-29 10:57] LABS: BASOPHILS # (AUTO) 0.1 (0.0-0.1); BASOPHILS % 0.7 % (0.0-1.0); EOSINOPHILS # (AUTO) 0.1 (0.0-0.4); EOSINOPHILS % 0.6 % (0.0-6.0); HEMATOCRIT 35.9 % (34.2-44.1); HEMOGLOBIN 11.2 g/dL (12.0-16.0); LYMPHOCYTES % 20.9 % (18.0-39.1); MEAN CORPUSCULAR HEMOGLOBIN 29.3 pg (28-32); MEAN CORPUSCULAR HGB CONC 31.2 g/dL (31-35); MONOCYTES # (AUTO) 0.7 (0.2-0.8); MONOCYTES % 7.3 % (4.4-11.3); NEUTROPHILS # (AUTO) 6.5 (2.1-6.9); PLATELET COUNT 408 x10e3/uL (140-360); RED BLOOD COUNT 3.82 x10e6/uL (3.6-5.1); RED CELL DISTRIBUTION WIDTH 14.3 % (11.7-14.4)
[2019-12-29 11:14] LABS: ANION GAP 17.2 mmol/L (8-16); CALCIUM 8.2 mg/dL (8.4-10.2); CREATININE, SERUM 1.06 mg/dL (0.57-1.11); POTASSIUM 4.2 mmol/L (3.5-5.1)
[2019-12-29 11:54] VITALS: BP 142/61
--- NOTE | 2019-12-29 12:24 | NUR ---
CALL PLACED TO MANOJ DALY ([phone]), PATIENT'S SIGNIFICANT OTHER, WHO STATES HE WILL CALL BACK TO VERIFY MEDICATIONS WHEN HE CAN GET TO THE ACTUAL BOTTLES.
--- NOTE | 2019-12-29 13:00 | NUR ---
MANOJ DALY, PATIENT'S SIGNIFICANT OTHER, VERIFIED PATIENT'S HEART MEDICATIONS FOLLOWS: ELIQUIS 2.5 MG BID AMIODARONE 200 MG BID METOPROLOL TARTRATE 50 MG BID
--- NOTE | 2019-12-29 13:57 | NUR ---
Nutrition Screen Note RD Recommendation for Physician: -Continue diet as ordered Plan of Care: RD following, monitoring for tolerance and adequacy Nutrition reason for involvement: MST Primary Diagnose(s): Bradycardia, mild UTI, mild anemia PMH: Afib, HTN, CAD, reflux, hypothyroidism, chronic anemia, chronic renal insufficiency Ht: 60in Wt: 102lb BMI: 19.9kg/m2 IBW: 100lb RD Assessment: Chart reviewed. Labs and meds reviewed. 84yo M, who was admitted for generalized weakness with bradycardia, Visited pt in the room. Pt states this is the first time I actually eat in a few days. 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 Pt starting to get her appetite back today. Pt denies any nausea or vomiting. No chewing or swallowing difficulty reported. UBW ~98lbs. Pt is eager to go home. Pt has no other question or request during my time of visit. Current Diet: cardiac diet Malnutrition Evaluation The patient does not meet criteria for a specified degree of malnutrition at this time. Will re-evaluate at follow-up as appropriate. Diet Education Needs Assessment: Diet education not indicated. Nutrition Care Level: low Signed: Doris Beck, MS, RD, LD
--- NOTE | 2019-12-29 15:22 | NUR ---
SPOKE WITH DR BURNS WHO SAID PT WILL BE DISCHARGED HOME LATER TODAY AFTER NURSE CALLS HIM REPEAT LABS DAY 2 OBS
[2019-12-29 16:00] VITALS: BP 123/60
--- NOTE | 2019-12-29 16:21 | NUR ---
PATIENT DISCHARGED HOME VIA PRIVATE VEHICLE. PERIPHERAL IV WAS DISCONTINUED WITHOUT RESISTANCE; CATHETER TIP INTACT. DRY DRESSING APPLIED. PATIENT AND DAUGHTER, KADEEM, WERE PROVIDED WITH DISCHARGE INSTRUCTIONS AND EDUCATION MATERIALS. PATIENT VERBALIZED UNDERSTANDING.
== END 2019-12-29 16:22 | disposition home or self-care (01) ==
LOC: ER 18:36 → ERHOLD 20:19 → MED/SURG2 22:23
PROVIDERS: ADMIT Internal Medicine; ATTEND Internal Medicine
DX: N39.0 Urinary tract infection, site not specified (principal); D64.9 Anemia, unspecified; I48.91 Unspecified atrial fibrillation; Z79.01 Long term (current) use of anticoagulants; E03.9 Hypothyroidism, unspecified; I12.9 Hypertensive chronic kidney disease with stage 1 through stage 4 chronic kidney disease, or unspecified chronic kidney disease; N18.9 Chronic kidney disease, unspecified; Z11.59 Encounter for screening for other viral diseases
CPT/HCPCS: 36415 ×3; 70450; 80048; 80053 ×2; 81001; 82550 ×2; 82553 ×2; 84484 ×2; 85025 ×3; 93005; 99285; G0378 ×3; J0696 ×2; J7050; Q0162 ×2; S0164 ×2; U0002

== ENCOUNTER 2020-04-01 15:27 | Inpatient (IN) | payer MEDICARE ==
[~2020-04-01] VITALS: Ht 154.9 cm; Wt 46.3 kg
[2020-04-01 16:16] LABS: BASOPHILS # (AUTO) 0.1 (0.0-0.1); BASOPHILS % 0.9 % (0.0-1.0); EOSINOPHILS # (AUTO) 0.1 (0.0-0.4); EOSINOPHILS % 1.6 % (0.0-6.0); HEMATOCRIT 32.3 % (34.2-44.1); HEMOGLOBIN 10.2 g/dL (12.0-16.0); LYMPHOCYTES # (AUTO) 1.6 (1.0-3.2); LYMPHOCYTES % 18.2 % (18.0-39.1); MEAN CORPUSCULAR HEMOGLOBIN 29.6 pg (28-32); MEAN CORPUSCULAR HGB CONC 31.6 g/dL (31-35); MEAN CORPUSCULAR VOLUME 93.6 fL (81-99); MONOCYTES # (AUTO) 0.7 (0.2-0.8); MONOCYTES % 8.6 % (4.4-11.3); NEUTROPHILS % 70.1 % (38.7-80.0); PLATELET COUNT 453 x10e3/uL (140-360); RED BLOOD COUNT 3.45 x10e6/uL (3.6-5.1); RED CELL DISTRIBUTION WIDTH 14.9 % (11.7-14.4)
[2020-04-01 16:34] LABS: ALBUMIN 3.3 g/dL (3.5-5.0); ANION GAP 13.8 mmol/L (8-16); CALCIUM 8.4 mg/dL (8.4-10.2); CREATININE, SERUM 1.61 mg/dL (0.57-1.11); POTASSIUM 4.8 mmol/L (3.5-5.1)
[2020-04-01 21:20] VITALS: BP 147/66
[2020-04-01 21:30] VITALS: BP 147/66
[2020-04-02] VITALS (8 sets, daily range): BP systolic 116–147; BP diastolic 53–71
[2020-04-02] MEDS: FERROUS SULFATE 325 MG TAB PO SCH ×2 (10:31→18:12)
[2020-04-02] MEDS: LEVOTHYROXINE SODIUM 50 MCG TAB PO SCH (10:31)
[2020-04-02] MEDS: OXYBUTYNIN CHLORIDE 5 MG TAB PO SCH (10:31)
[2020-04-02] MEDS: LUBIPROSTONE 24 MCG CAP PO SCH (10:31)
[2020-04-02] MEDS: PANTOPRAZOLE SOD 40 MG TABEC PO SCH (10:31)
[2020-04-02] MEDS: SODIUM CHLORIDE 0.9% 1000ML 1,000 ML IV SCH ×2 (10:31→18:30)
[2020-04-02 11:00] LABS: THYROID STIMULATING HORMONE 2.116 uIU/mL (0.350-4.940)
[2020-04-02 11:05] LABS: MAGNESIUM 2.3 MG/DL (1.3-2.1); PHOSPHORUS 4.1 MG/DL (2.3-4.7)
[2020-04-02] MEDS ORDERED: TENORMIN25 MG PO (14:11)
[2020-04-02] MEDS ORDERED: AMIODARONE HCL200 MG PO (14:11)
[2020-04-02 20:40] LABS: CLARITY,URINE SL CLOUDY (CLEAR); COLOR,URINE YELLOW (YELLOW); KETONES,URINE NEGATIVE (NEGATIVE); LEUKOCYTE ESTERASE ,URINE SMALL (NEGATIVE); NITRITE,URINE POSITIVE (NEGATIVE); PROTEIN,URINE DIPSTICK NEGATIVE (NEGATIVE); URINE UROBILINOGEN 0.2 mg/dL (0.2 - 1)
[2020-04-02 20:51] LABS: BACTERIA,URINE MANY /HPF; EPITHELIAL CELLS,URINE MODERATE /LPF; RBC,URINE 0-5 /HPF (0-5)
[2020-04-03] VITALS (8 sets, daily range): BP systolic 138–180; BP diastolic 55–72
[2020-04-03 05:03] LABS: BASOPHILS # (AUTO) 0.1 (0.0-0.1); BASOPHILS % 0.6 % (0.0-1.0); EOSINOPHILS # (AUTO) 0.2 (0.0-0.4); EOSINOPHILS % 1.6 % (0.0-6.0); HEMATOCRIT 33.3 % (34.2-44.1); HEMOGLOBIN 10.4 g/dL (12.0-16.0); LYMPHOCYTES # (AUTO) 1.8 (1.0-3.2); LYMPHOCYTES % 17.3 % (18.0-39.1); MEAN CORPUSCULAR HEMOGLOBIN 29.9 pg (28-32); MEAN CORPUSCULAR HGB CONC 31.2 g/dL (31-35); MEAN CORPUSCULAR VOLUME 95.7 fL (81-99); MONOCYTES # (AUTO) 1.3 (0.2-0.8); MONOCYTES % 12.3 % (4.4-11.3); NEUTROPHILS # (AUTO) 7.1 (2.1-6.9); NEUTROPHILS % 67.7 % (38.7-80.0); PLATELET COUNT 418 x10e3/uL (140-360); RED BLOOD COUNT 3.48 x10e6/uL (3.6-5.1); RED CELL DISTRIBUTION WIDTH 14.8 % (11.7-14.4)
[2020-04-03 05:17] LABS: ANION GAP 12.4 mmol/L (8-16); CREATININE, SERUM 1.05 mg/dL (0.57-1.11); POTASSIUM 4.4 mmol/L (3.5-5.1)
[2020-04-03] MEDS: SODIUM CHLORIDE 0.9% 1000ML 1,000 ML IV SCH (06:12)
[2020-04-03] MEDS: LEVOTHYROXINE SODIUM 50 MCG TAB PO SCH (06:13)
[2020-04-03] MEDS: PANTOPRAZOLE SOD 40 MG TABEC PO SCH (08:56)
[2020-04-03] MEDS: FERROUS SULFATE 325 MG TAB PO SCH ×2 (08:57→16:09)
[2020-04-03] MEDS: LUBIPROSTONE 24 MCG CAP PO SCH (08:57)
[2020-04-03] MEDS: OXYBUTYNIN CHLORIDE 5 MG TAB PO SCH (08:57)
[2020-04-03] MEDS ORDERED: AMLODIPINE BESYLATE 10 MG TAB PO ONE (10:15)
[2020-04-03] MEDS ORDERED: CEFTRIAXONE SOD 1 GM/NS 50 ML 50 ML IV ONE (10:15)
[2020-04-04] VITALS (8 sets, daily range): BP systolic 140–161; BP diastolic 57–69
[2020-04-04] MEDS: LEVOTHYROXINE SODIUM 50 MCG TAB PO SCH (06:11)
[2020-04-04] MEDS: PANTOPRAZOLE SOD 40 MG TABEC PO SCH (08:24)
[2020-04-04] MEDS: CEFTRIAXONE SOD 1 GM/NS 50 ML 50 ML IV SCH (08:24)
[2020-04-04] MEDS: FERROUS SULFATE 325 MG TAB PO SCH ×2 (08:24→17:16)
[2020-04-04] MEDS: LUBIPROSTONE 24 MCG CAP PO SCH (08:24)
[2020-04-04] MEDS: AMLODIPINE BESYLATE 5 MG TAB PO SCH (08:24)
[2020-04-04] MEDS: ONDANSETRON HCL 4 MG ORAL DISINTEGRATING TAB PO PRN (10:22)
[2020-04-05] VITALS (8 sets, daily range): BP systolic 126–158; BP diastolic 57–83
[2020-04-05] MEDS: LEVOTHYROXINE SODIUM 50 MCG TAB PO SCH (05:39)
[2020-04-05 06:51] LABS: BASOPHILS # (AUTO) 0.1 (0.0-0.1); BASOPHILS % 0.7 % (0.0-1.0); EOSINOPHILS # (AUTO) 0.2 (0.0-0.4); EOSINOPHILS % 1.8 % (0.0-6.0); HEMATOCRIT 29.7 % (34.2-44.1); HEMOGLOBIN 9.2 g/dL (12.0-16.0); LYMPHOCYTES # (AUTO) 1.4 (1.0-3.2); LYMPHOCYTES % 16.8 % (18.0-39.1); MEAN CORPUSCULAR HEMOGLOBIN 29.1 pg (28-32); MONOCYTES # (AUTO) 1.2 (0.2-0.8); MONOCYTES % 14.1 % (4.4-11.3); NEUTROPHILS # (AUTO) 5.5 (2.1-6.9); NEUTROPHILS % 66.2 % (38.7-80.0); PLATELET COUNT 383 x10e3/uL (140-360); RED BLOOD COUNT 3.16 x10e6/uL (3.6-5.1); RED CELL DISTRIBUTION WIDTH 14.8 % (11.7-14.4)
[2020-04-05 07:13] LABS: CALCIUM 8.3 mg/dL (8.4-10.2); CREATININE, SERUM 1.04 mg/dL (0.57-1.11)
[2020-04-05] MEDS: ACETAMINOPHEN 325 MG TAB PO SCH (10:26)
[2020-04-05] MEDS: AMLODIPINE BESYLATE 5 MG TAB PO SCH (10:26)
[2020-04-05] MEDS: CEFTRIAXONE SOD 1 GM/NS 50 ML 50 ML IV SCH (10:26)
[2020-04-05] MEDS: LUBIPROSTONE 24 MCG CAP PO SCH (10:26)
[2020-04-05] MEDS: PANTOPRAZOLE SOD 40 MG TABEC PO SCH (10:26)
[2020-04-05] MEDS ORDERED: CYANOCOBALAMIN INJ 1,000 MCG/ML VIAL IM ONE (10:30)
[2020-04-05] MEDS: FERROUS SULFATE 325 MG TAB PO SCH ×2 (10:30→17:11)
[2020-04-05] MEDS: IRON SUCROSE 100 MG in SODIUM CHLORIDE 0.9% 100 ML 100 ML IV SCH (12:31)
[2020-04-06] VITALS (8 sets, daily range): BP systolic 118–145; BP diastolic 53–87
[2020-04-06] MEDS: LEVOTHYROXINE SODIUM 50 MCG TAB PO SCH (05:55)
[2020-04-06] MEDS: ACETAMINOPHEN 325 MG TAB PO SCH (09:00)
[2020-04-06] MEDS: AMLODIPINE BESYLATE 5 MG TAB PO SCH (09:16)
[2020-04-06] MEDS: PANTOPRAZOLE SOD 40 MG TABEC PO SCH (09:16)
[2020-04-06] MEDS: FERROUS SULFATE 325 MG TAB PO SCH ×2 (09:16→16:15)
[2020-04-06] MEDS: LUBIPROSTONE 24 MCG CAP PO SCH (09:16)
[2020-04-06] MEDS: CEFTRIAXONE SOD 1 GM/NS 50 ML 50 ML IV SCH (09:16)
[2020-04-06] MEDS: IRON SUCROSE 100 MG in SODIUM CHLORIDE 0.9% 100 ML 100 ML IV SCH (11:00)
[2020-04-07 00:25] VITALS: BP 134/64
[2020-04-07 05:12] VITALS: BP 144/67
[2020-04-07] MEDS: LEVOTHYROXINE SODIUM 50 MCG TAB PO SCH (05:13)
[2020-04-07] MEDS: PANTOPRAZOLE SOD 40 MG TABEC PO SCH (08:05)
[2020-04-07] MEDS: CEFTRIAXONE SOD 1 GM/NS 50 ML 50 ML IV SCH (08:40)
[2020-04-07 08:53] VITALS: BP 157/57
[2020-04-07] MEDS: ACETAMINOPHEN 325 MG TAB PO SCH (09:31)
[2020-04-07] MEDS: LUBIPROSTONE 24 MCG CAP PO SCH (09:31)
[2020-04-07] MEDS: AMLODIPINE BESYLATE 5 MG TAB PO SCH (09:31)
[2020-04-07] MEDS: FERROUS SULFATE 325 MG TAB PO SCH ×2 (09:31→17:00)
[2020-04-07] MEDS: IRON SUCROSE 100 MG in SODIUM CHLORIDE 0.9% 100 ML 100 ML IV SCH (11:00)
[2020-04-07 13:22] VITALS: BP 139/60
[2020-04-07 16:28] VITALS: BP 134/61
[2020-04-07] MEDS ORDERED: VANCOMYCIN HCL 1 GM VIAL ONE (18:35)
[2020-04-07] MEDS ORDERED: LIDOCAINE 2% /EPINEPHRINE 20 ML SDV INJ ONE (18:35)
[2020-04-07] MEDS ORDERED: MIDAZOLAM HCL 2 MG/2 ML VIAL ONE ×2 (18:37→19:46)
[2020-04-07] MEDS ORDERED: FENTANYL CITRATE/PF 100MCG/2 ML INJ ONE (18:38)
[2020-04-07] MEDS ORDERED: VANCOMYCIN 1GM/NS 250 ML 250 ML ONE (18:38)
[2020-04-07] MEDS ORDERED: LIDOCAINE HCL 2% LOCAL 20 ML VIAL ONE (18:38)
[2020-04-07] MEDS ORDERED: SODIUM CHLORIDE 0.9% 1000ML 1,000 ML ONE ×2 (18:38→19:24)
[2020-04-07] MEDS ORDERED: GENTAMICIN SULFATE 40 MG/ML 2 ML VIAL ONE (19:26)
[2020-04-07 20:00] VITALS: BP_SYST 171; BP_SYST 175; BP_DIAS 71; BP_DIAS 74
[2020-04-07] MEDS ORDERED: TRAMADOL HCL 50 MG TAB PO PRN (21:30)
[2020-04-07] MEDS ORDERED: ACETAMINOPHEN 325 MG TAB PO PRN (21:30)
[2020-04-08] VITALS (7 sets, daily range): BP systolic 136–167; BP diastolic 60–75
[2020-04-08] MEDS: LEVOTHYROXINE SODIUM 50 MCG TAB PO SCH (06:01)
[2020-04-08] MEDS: AMLODIPINE BESYLATE 5 MG TAB PO SCH (08:53)
[2020-04-08] MEDS: LUBIPROSTONE 24 MCG CAP PO SCH (08:53)
[2020-04-08] MEDS: FERROUS SULFATE 325 MG TAB PO SCH ×2 (08:53→16:31)
[2020-04-08] MEDS: PANTOPRAZOLE SOD 40 MG TABEC PO SCH (08:53)
[2020-04-08] MEDS: CEFTRIAXONE SOD 1 GM/NS 50 ML 50 ML IV SCH (08:53)
[2020-04-08] MEDS ORDERED: SODIUM CHLORIDE 0.9% 250ML 250 ML ONE (09:05)
[2020-04-08] MEDS: ONDANSETRON HCL 4 MG ORAL DISINTEGRATING TAB PO PRN (10:04)
[2020-04-08] MEDS: AMIODARONE HCL 200 MG TAB PO SCH (10:58)
[2020-04-08] MEDS: METOPROLOL TARTRATE 25 MG TAB PO SCH ×2 (10:58→17:41)
[2020-04-09] VITALS (9 sets, daily range): BP systolic 110–169; BP diastolic 62–81
[2020-04-09] MEDS: LEVOTHYROXINE SODIUM 50 MCG TAB PO SCH (06:06)
[2020-04-09 08:58] LABS: BASOPHILS # (AUTO) 0.1 (0.0-0.1); BASOPHILS % 0.7 % (0.0-1.0); EOSINOPHILS # (AUTO) 0.1 (0.0-0.4); EOSINOPHILS % 1.4 % (0.0-6.0); HEMATOCRIT 29.7 % (34.2-44.1); HEMOGLOBIN 9.2 g/dL (12.0-16.0); LYMPHOCYTES # (AUTO) 1.1 (1.0-3.2); LYMPHOCYTES % 14.5 % (18.0-39.1); MEAN CORPUSCULAR HEMOGLOBIN 29.2 pg (28-32); MEAN CORPUSCULAR VOLUME 94.3 fL (81-99); MONOCYTES # (AUTO) 0.8 (0.2-0.8); MONOCYTES % 11.4 % (4.4-11.3); NEUTROPHILS # (AUTO) 5.2 (2.1-6.9); NEUTROPHILS % 71.6 % (38.7-80.0); PLATELET COUNT 396 x10e3/uL (140-360); RED BLOOD COUNT 3.15 x10e6/uL (3.6-5.1); RED CELL DISTRIBUTION WIDTH 14.9 % (11.7-14.4)
[2020-04-09 09:28] LABS: ANION GAP 11.3 mmol/L (8-16); CALCIUM 8.1 mg/dL (8.4-10.2); CREATININE, SERUM 0.93 mg/dL (0.57-1.11); POTASSIUM 4.3 mmol/L (3.5-5.1)
[2020-04-09] MEDS: PANTOPRAZOLE SOD 40 MG TABEC PO SCH (10:26)
[2020-04-09] MEDS: AMIODARONE HCL 200 MG TAB PO SCH (10:27)
[2020-04-09] MEDS: FERROUS SULFATE 325 MG TAB PO SCH ×2 (10:27→18:00)
[2020-04-09] MEDS: LUBIPROSTONE 24 MCG CAP PO SCH (10:27)
[2020-04-09] MEDS: METOPROLOL TARTRATE 25 MG TAB PO SCH ×2 (10:29→18:00)
[2020-04-09] MEDS: AMLODIPINE BESYLATE 10 MG TAB PO SCH (10:29)
[2020-04-09] MEDS ORDERED: ACETAMINOPHEN 325 MG TAB PO SCH (10:30)
[2020-04-09] MEDS: ACETAMINOPHEN 325 MG TAB PO SCH (10:34)
[2020-04-09] MEDS: CEFTRIAXONE SOD 1 GM/NS 50 ML 50 ML IV SCH (10:39)
[2020-04-09] MEDS: IRON SUCROSE 100 MG in SODIUM CHLORIDE 0.9% 100 ML 100 ML IV SCH (11:36)
[2020-04-10 04:56] VITALS: BP 165/71
[2020-04-10] MEDS: LEVOTHYROXINE SODIUM 50 MCG TAB PO SCH (05:18)
[2020-04-10 08:07] VITALS: BP 156/71
[2020-04-10 09:15] VITALS: BP 156/71
[2020-04-10] MEDS: PANTOPRAZOLE SOD 40 MG TABEC PO SCH (10:04)
[2020-04-10] MEDS: CEFTRIAXONE SOD 1 GM/NS 50 ML 50 ML IV SCH (10:04)
[2020-04-10] MEDS: FERROUS SULFATE 325 MG TAB PO SCH (10:05)
[2020-04-10] MEDS: AMIODARONE HCL 200 MG TAB PO SCH (10:05)
[2020-04-10] MEDS: LUBIPROSTONE 24 MCG CAP PO SCH (10:05)
[2020-04-10] MEDS: AMLODIPINE BESYLATE 10 MG TAB PO SCH (10:06)
[2020-04-10] MEDS: ACETAMINOPHEN 325 MG TAB PO SCH (10:06)
[2020-04-10] MEDS: METOPROLOL TARTRATE 25 MG TAB PO SCH (10:06)
[2020-04-10] MEDS: IRON SUCROSE 100 MG in SODIUM CHLORIDE 0.9% 100 ML 100 ML IV SCH (11:00)
[2020-04-10 11:42] VITALS: BP 132/70
[2020-04-10] MEDS ORDERED: MINOCYCLINE HCL50 MG PO (11:54)
[2020-04-10] MEDS ORDERED: NORVASC10 MG PO (11:54)
[2020-04-10] MEDS ORDERED: METOPROLOL TART25 MG PO (11:54)
== END 2020-04-10 12:35 | disposition home or self-care (01) | DRG 243 ==
LOC: ER 15:52 → ERHOLD 17:01 → MED/SURG3 21:15 → OBSVTOIN 04-03 09:09
PROVIDERS: ADMIT Internal Medicine; ATTEND Internal Medicine
PROC: 0JH606Z Insertion of Pacemaker, Dual Chamber into Chest Subcutaneous Tissue and Fascia, Open Approach (ICD-10-PCS; principal; 2020-04-07)
PROC: 02H63JZ Insertion of Pacemaker Lead into Right Atrium, Percutaneous Approach (ICD-10-PCS; 2020-04-07)
PROC: 02HK3JZ Insertion of Pacemaker Lead into Right Ventricle, Percutaneous Approach (ICD-10-PCS; 2020-04-07)
DX: I49.5 Sick sinus syndrome (principal); N17.9 Acute kidney failure, unspecified; N39.0 Urinary tract infection, site not specified; T50.905A Adverse effect of unspecified drugs, medicaments and biological substances, initial encounter; D64.9 Anemia, unspecified; E86.0 Dehydration; Z20.822 Contact with and (suspected) exposure to COVID-19; I25.10 Atherosclerotic heart disease of native coronary artery without angina pectoris; E03.9 Hypothyroidism, unspecified; I48.0 Paroxysmal atrial fibrillation; Z79.01 Long term (current) use of anticoagulants; I12.9 Hypertensive chronic kidney disease with stage 1 through stage 4 chronic kidney disease, or unspecified chronic kidney disease; N18.9 Chronic kidney disease, unspecified
CPT/HCPCS: 33208; 36415; 71045; 75820; 80048; 80053; 81001; 82270; 82607; 82746; 82948; 83036; 83540; 83735; 84100; 84443; 84466; 84484; 85025; 87086; 87186; 93005; 97139; 99152; 99153; 99284; C1769; C1785; C1898; G0378; J0696; J1580; J1756; J2001; J2250; J3010; J3370; J3420; J7030; J7050; Q0162; U0002

== ENCOUNTER 2020-06-24 12:01 | Emergency (ER) | payer MEDICARE ==
[~2020-06-24] VITALS: Ht 307.3 cm; Wt 46.3 kg
[~2020-06-24 12:01] MED LIST changes: +AMIODARONE HCL200 MG PO; +METOPROLOL TART25 MG PO; +MINOCYCLINE HCL50 MG PO; +NORVASC10 MG PO; +TENORMIN25 MG PO
== END 2020-06-24 16:11 | disposition home or self-care (01) ==
LOC: ER 12:20
DX: M71.21 Synovial cyst of popliteal space [Baker], right knee (principal); M79.661 Pain in right lower leg; I10 Essential (primary) hypertension; I48.91 Unspecified atrial fibrillation; G47.00 Insomnia, unspecified; Z95.810 Presence of automatic (implantable) cardiac defibrillator; Z20.822 Contact with and (suspected) exposure to COVID-19
CPT/HCPCS: 93971; 99283; U0002